=== PATIENT | female | born 2005 | race Caucasian/White ===

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

== ENCOUNTER 2023-11-07 18:21 | Inpatient (IN) ==
--- NOTE | 2023-11-07 18:44 | ED Triage Note ---
Date of Service November 07, 2023 Provider in Triage Author: Jose Ga A History of Present Illness This patient was briefly evaluated while in triage. An abbreviated physical exam was performed. This patient is a 18-year-old Female who presents to the ED for evaluation of suicidal thoughts. Has a plan, but does not elaborate in triage. States "I don't want to be alive anymore". Has had inpatient stays before. Physical Exam Limited Triage Exam: VITALS: Vitals are noted on the nurse's note and reviewed by myself. Vital signs stable. GENERAL: Well-developed, well-nourished, white female, who is in no acute distress and resting comfortably. Patient is cooperative with the examination. HEART: Regular rate and rhythm without murmurs gallops or rubs. LUNGS: Clear to auscultation bilaterally without wheezes, rales or rhonchi. No retractions or accessory muscle use. NEURO: Patient was alert and oriented to person place and time. CN II through XII grossly intact. Initial orders for labs and / or imaging were placed and patient was placed in the waiting area until a bed is available. Please see further documentation for the full ED course. MDM / Impression Impression Impression: Depression with suicidal ideation, Deliberate self-cutting
[2023-11-07 19:29] LABS: Appearance Urine Clear (Clear); Bacteria Urine Automated Negative (Negative); Bilirubin Urine Negative (Negative); Blood Urine Negative (Negative); Cast Urine Automated 0 /lpf (0-5); Color Urine Yellow; Epithelial Cell Urine Auto >30 /lpf (0-5); Glucose Urine UA Negative (Negative); Ketones Urine Negative (Negative); Leukocyte Esterase Urine Negative (Negative); Nitrite Urine Negative (Negative); Protein Urine Trace (Negative); RBC Urine Automated 0-4 /hpf (0-4); Specific Gravity Urine 1.019 (1.000-1.030); Urobilinogen Urine Negative (Negative)
[2023-11-07] MEDS ORDERED: clonazePAM 0.25 MG TAB PO PRN (19:35)
[2023-11-07 19:36] LABS: Basophils # (auto) 0.05 K/uL (0.00-0.20); Basophils % (auto) 0.4 %; Eosinophils # (auto) 0.03 K/uL (0.00-0.50); Eosinophils % (auto) 0.2 %; Hematocrit (blood only) 41.5 % (37.0-47.0); Hemoglobin 13.8 g/dl (12.0-16.0); Immature Granulocytes # (auto) 0.06 K/uL (0.01-0.20); Immature Granulocytes % (auto) 0.5 %; Lymphocytes # (auto) 3.16 K/uL (1.20-3.40); Lymphocytes % (auto) 25.2 %; Mean Corpuscular Hemoglobin 29.2 pg (25.0-34.0); Mean Corpuscular Hgb Conc 33.3 g/dL (32.0-36.0); Mean Corpuscular Volume 87.9 fL (80.0-100.0); Mean Platelet Volume 9.5 fL (9.4-12.4); Monocytes # (auto) 0.62 K/uL (0.11-0.59); Monocytes % (auto) 4.9 %; Neutrophils # (auto) 8.62 K/uL (1.40-6.50); Neutrophils % (auto) 68.8 %; Platelet Count 339 K/uL (130-400); RDW Coefficient of Variation 13.1 % (11.5-14.5); RDW Standard Deviation 41.8 fL (36.4-46.3); Red Blood Count 4.72 M/uL (4.20-5.40); White Blood Count 12.54 K/ul (4.8-10.8)
[2023-11-07] MEDS ORDERED: busPIRone 5 MG TAB PO SCH (19:45)
[2023-11-07 19:47] LABS: Albumin Globulin Ratio 1.4 (0.9-2); Albumin Level 4.8 gm/dl (3.4-5.0); BUN Creatinine Ratio 13.4 (10-20); Bilirubin,Total 0.5 mg/dl (0.2-1.0); Calcium 9.8 mg/dl (8.6-10.3); Creatinine Clr Calc Pharmacy 185.3 ml/min; Est GFR (African American) 146.7 ml/min; Est GFR (Non-African American) 126.5 ml/min; Globulin 3.4 gm/dl (2.5-4.0); Potassium 3.7 mmol/L (3.5-5.1); Total Protein 8.2 gm/dl (6.0-8.3)
--- NOTE | 2023-11-07 19:47 | Emergency Department Note ---
Impression & Plan Depression with suicidal ideation, Deliberate self-cutting ED Provider Note Provider: Chucky Ortiz MD DATE OF SERVICE: 11/07/2023 CHIEF COMPLAINT: Depression, self-harm HISTORY OF PRESENT ILLNESS: Patient is a 18-year-old female history of PTSD, anxiety, self-harm in the past, borderline personality presenting here today after discussing with her friend her worsening mental health. Patient states over the last several days to weeks she has had worsening events at home. Broke up with her fianc. Last day or so did a bit of self cutting on her right leg with a razor and has been looking up ways and then and had a killer cell fast and quickly. States she has not acted on this or got anything but is very depressed and feels like she is wants to be . Denies wanting harm anybody else. States she has been mostly taking her other medications occasionally missing some of her psychiatric medications. Has been living with her female roommate who again recommended she come here for evaluation. Was previously hospitalized here in August and did well with that she says. Denies alcohol use and does use marijuana. PAST MEDICAL HISTORY: As noted above MEDICATIONS: Reviewed home medication SOCIAL HISTORY: Lives with roommate, uses marijuana but does not drink alcohol or use other drugs. PHYSICAL EXAM: GENERAL: alert and oriented in no acute distress on stretcher initial Head: normocephalic and atraumatic EYES: No injection, discharge or icterus. NECK: Trachea midline. ENT: Mucous membranes pink and moist. LUNGS: Airway patent. No retractions or tachypnea HEART: Regular rate and rhythm. SKIN: Acyanotic, warm, dry EXTREMITIES: Without swelling, tenderness or deformity NEUROLOGICAL: No focal deficits. No aphasia. No facial droop or slurred speech. Ambulatory. Psych: Squeezing a stress ball becoming quite tearful during conversation. Denies wanting to harm anybody else. Not responding to external stimuli. Tearful and quite anxious during exam. Patient's laboratory studies and imaging reviewed. Differential includes Mood disorder, infection, hypoglycemia, electrolyte abnormalities, cardiac sources, intracerebral event, toxicologic, trauma, neurologic, as well as other pathologies. IMPRESSION/MEDICAL DECISION MAKING: Patient with a psychiatric history. Quite tearful with some minimal cutting self-harm to the legs but nothing significant depth require closure. Not appear infected. States he has been a little ways to harm self. Seen with returned case inspector. Home medications ordered she states she was mostly compliant with. Believe she would benefit from inpatient treatment given the severity of her reported suicidal thoughts and fact that she is looking up ways to end her life and really admits this to me. Basic labs ordered hearing completed. Nonspecific leukocytosis but no other infectious symptoms. No signs of significant thyroid dysfunction or electrolyte abnormality. No signs of UTI. Negative COVID testing. UDS positive for marijuana as well as opiates. She admits to marijuana use. Case management discussed with her further and referral to be made for voluntary inpatient treatment. Home meds ordered and given and as needed clonazepam is the patient's significant other broke up with the patient via phone here and she became quite tearful and upset. Bed search in progress for inpatient treatment. DIAGNOSIS: Depression with suicidal ideation DISPOSITION: Signed out pending placement to Dr. Maddox Past Med/Surg History Medical History Depression Nausea & vomiting reason for upcoming procedure PCOS (polycystic ovarian syndrome) Pre-diabetes Surgical History No pertinent past surgical history Family History Other No family history of adverse response to anesthesia Social History Smoking Status: Never smoker Tobacco Type: E-cigarettes / Vaping Second Hand Exposure: No; Do You Dip or Chew Tobacco: No; Hx Alcohol Use: No Hx Substance Use: No Preferred Language: Kosovan Communication Ability: Effective Academic Affairs Dean Required: No Beliefs That Will Affect Care: None Current Living Situation: Alone Feels Safe at Home: Yes Gender Identity: Female Assistive Devices: Glasses Allergies Allergies Allergy/AdvReac Type Severity Reaction Status Date / Time escitalopram [From Lexapro] AdvReac Intermediate MOUTH Verified 07/12/22 22:39 JITTERY, NAUSEATED, PASSED OUT Home Meds Home Medications Medication Instructions Recorded Confirmed metformin 500 mg tablet,extended 500 mg PO QAM 07/20/21 11/07/23 release 24 hr dulaglutide 1.5 mg/0.5 mL 4.5 mg subcut WK 08/17/23 11/07/23 subcutaneous pen injector (Trulicity) buspirone 10 mg tablet 15 mg PO BIDWMEAL 11/07/23 11/07/23 clonazepam 0.5 mg tablet 0.5 mg DIRECTED PRN Anxiety 11/07/23 11/07/23 lamotrigine 25 mg tablet (Lamictal) 100 mg PO HS 11/07/23 11/07/23 Previous Rx's Medication Instructions Recorded fluoxetine 20 mg capsule 20 mg PO QAM #30 caps 08/19/23 trazodone 50 mg tablet 50 mg PO HS #30 tabs 08/19/23 Results & Data (ED) Vital Signs Vital Signs - 24 hr 11/07/23 18:43 11/07/23 19:22 11/07/23 21:00 Temperature 36.5 C Temperature Source Temporal Artery Scan Pulse Rate 115 H Respiratory Rate 18 Respiratory Effort / Characteristics Non-Labored Non-Labored Respiratory Depth Normal Normal Normal Blood Pressure 159/93 H Blood Pressure Mean 115 Blood Pressure Position Sitting Pulse Oximetry 93 Oxygen Delivery Method Room Air Room Air Sepsis Recent Fever Within 48 Hours No Sepsis New/Unexplained Change in Mental Status No Sepsis Action Taken by Nursing No Action Required Laboratory Data 11/07/23 19:00 11/07/23 19:00 Lab Results 11/07/23 11/07/23 11/07/23 Range/Units 18:56 19:00 19:20 WBC 12.54 H (4.8-10.8) K/ul RBC 4.72 (4.20-5.40) M/uL Hgb 13.8 (12.0-16.0) g/dl Hct 41.5 (37.0-47.0) % MCV 87.9 (80.0-100.0) fL MCH 29.2 (25.0-34.0) pg MCHC 33.3 (32.0-36.0) g/dL RDW Std Deviation 41.8 (36.4-46.3) fL RDW Coeff of Marcelo 13.1 (11.5-14.5) % Plt Count 339 (130-400) K/uL MPV 9.5 (9.4-12.4) fL Immature Gran % (Auto) 0.5 % Neut % (Auto) 68.8 % Lymph % (Auto) 25.2 % [place] % (Auto) 4.9 % Eos % (Auto) 0.2 % Baso % (Auto) 0.4 % Neut # (Auto) 8.62 H (1.40-6.50) K/uL Lymph # (Auto) 3.16 (1.20-3.40) K/uL [place] # (Auto) 0.62 H (0.11-0.59) K/uL Eos # (Auto) 0.03 (0.00-0.50) K/uL Baso # (Auto) 0.05 (0.00-0.20) K/uL Immature Gran # (Auto) 0.06 (0.01-0.20) K/uL Sodium 140 (136-145) mmol/L Potassium 3.7 (3.5-5.1) mmol/L Chloride 107 (98-107) mmol/L Carbon Dioxide 23 (21-32) mmol/L Anion Gap 10 (3-11) BUN 9 (6-23) mg/dl Creatinine 0.67 (0.6-1.2) mg/dl Est Cr Clr Drug Dosing 185.3 ml/min Est GFR ( Amer) 146.7 ml/min Est GFR (Non-Af Amer) 126.5 ml/min BUN/Creatinine Ratio 13.4 (10-20) Glucose 90 (70-99(Fasting)) mg/dl Calcium 9.8 (8.6-10.3) mg/dl Total Bilirubin 0.5 (0.2-1.0) mg/dl AST 24 (13-39) U/L ALT 34 (7-52) U/L Alkaline Phosphatase 90 (34-104) U/L Total Protein 8.2 (6.0-8.3) gm/dl Albumin 4.8 (3.4-5.0) gm/dl Globulin 3.4 (2.5-4.0) gm/dl Albumin/Globulin Ratio 1.4 (0.9-2) TSH 1.994 (0.300-4.500) uIu/ml HCG, Qual Negative (Negative) Urine Color Yellow Urine Appearance Clear (Clear) Urine pH 7.0 (4.5-7.5) Ur Specific [place] 1.019 (1.000-1.030) Urine Protein Trace H (Negative) Urine Glucose (UA) Negative (Negative) Urine Ketones Negative (Negative) Urine Blood Negative (Negative) Urine Nitrite Negative (Negative) Urine Bilirubin Negative (Negative) Urine Urobilinogen Negative (Negative) Ur Leukocyte Esterase Negative (Negative) Urine WBC (Auto) 1-5 (0-5) /hpf Urine RBC (Auto) 0-4 (0-4) /hpf U Hyaline Cast (Auto) 0 (0-5) /lpf U Epithel Cells (Auto) >30 H (0-5) /lpf Urine Bacteria (Auto) Negative (Negative) Salicylates < 3.0 L (3.0-30) mg/dl Urine Opiates Screen Pos H (Neg) Ur Methadone, Qual Neg (Neg) Acetaminophen < 3 L (10-30) ug/ml Urine Barbiturates Neg (Neg) Ur Phencyclidine (PCP) Neg (Neg) U Amphetamin/Meth Scrn Neg (Neg) MDMA (Ecstasy) Screen Neg (Neg) U Benzodiazepines Scrn Neg (Neg) Ur Cocaine Metabolite Neg (Neg) U Marijuana (THC) Screen Pos H (Neg) Ethyl Alcohol mg/dL < 10.0 (<10.0) mg/dl SARS-CoV-2, RNA, NAAT NEGATIVE (NEGATIVE) Administered Medications Lamotrigine (Lamotrigine 25 Mg Tab) 100 mg PO [facility]; Protocol Stop: 12/07/23 20:59 Last Admin: 11/07/23 21:13 Dose: 100 mg Documented By: SHANAE Trazodone HCl (Trazodone Hcl 50 Mg Tab) 50 mg PO [facility] Stop: 12/07/23 20:59 Last Admin: 11/07/23 21:13 Dose: 50 mg Documented By: SHANAE Discontinued Medications Clonazepam (Clonazepam 0.5 Mg Tab) Confirm Administered Dose 0.5 mg PO .STK-MED ONE Stop: 11/07/23 21:11 Last Admin: 11/07/23 21:17 Dose: Not Given Documented By: SHANAE Clonazepam (Clonazepam 0.5 Mg Tab) 0.5 mg PO NOW STA Stop: 11/07/23 21:17 Last Admin: 11/07/23 21:17 Dose: 0.5 mg Documented By: SHANAE Discharge Plan Visit Data Chief Complaint: Mental Health Evaluation Stated Complaint: SUICIDAL THOUGHTS, SELF HARM ED Provider: Chucky Ortiz Discharge Problem: Depression with suicidal ideation, Deliberate self-cutting Forms Stand Alone Forms: My [facility], Suicide Prevention Resources Prescriptions Prescriptions: No Action metformin 500 mg tablet extended release 24 hr 500 mg PO QAM clonazepam 0.5 mg tablet 0.5 mg DIRECTED PRN (Reason: Anxiety) buspirone 10 mg tablet 15 mg PO BIDWMEAL lamotrigine [Lamictal] 25 mg tablet 100 mg PO HS Trulicity 1.5 mg/0.5 mL pen injector 4.5 mg SUBCUT WK trazodone 50 mg Tablet 50 mg PO HS Qty: 30 0RF fluoxetine 20 mg Capsule 20 mg PO QAM Qty: 30 0RF Referrals Referrals: Tomasa Saldaña MD [Primary Care Provider] -
[2023-11-07 19:48] LABS: Acetaminophen < 3 ug/ml (10-30); Pregnancy Test, Serum Negative (Negative); Salicylate < 3.0 mg/dl (3.0-30)
[2023-11-07 19:54] LABS: Amphetamines+Metham, Urine Neg (Neg); Barbiturates, Urine Neg (Neg); Benzodiazepine, Urine Neg (Neg); Cocaine, Urine Neg (Neg); MDMA (Ecstacy), Urine Neg (Neg); Marijuana, Urine Pos (Neg); Methadone, Urine Neg (Neg); Opiate, Urine Pos (Neg); Phencyclidine, Urine Neg (Neg)
[2023-11-07 20:01] LABS: Thyroid Stimulating Hormone 1.994 uIu/ml (0.300-4.500)
[2023-11-07] MEDS ORDERED: traZODone HCL 50 MG TAB PO SCH (21:00)
[2023-11-07] MEDS ORDERED: lamoTRIgine 25 MG TAB PO SCH (21:00)
[2023-11-07] MEDS ORDERED: clonazePAM 0.5 MG TAB PO ONE (21:10)
[2023-11-07] MEDS ORDERED: clonazePAM 0.5 MG TAB PO STA (21:16)
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
--- OUTSIDE RECORDS SUMMARY | 2023-11-07 23:25 | External Medical Summary ---
Author Name Unknown Address Unknown Organization [id number]:[facility] - [address] [place] [address] Laboratory Report Ordering Provider Test Date Status MILANA STOKES 10/19/2023 10:20:15 Final Observation Date Value Abnormality Reference (Units) Status Bacteria identified in Specimen by Culture 10/19/2023 10:20:15 No significant growth Final Test: Culture, Urine, Quant itative
Specimen Source: Urine, Clean Catch
Specimen Type: Urine
Specimen Date: 10/19/2023 10:20 AM
Result Date: 10/20/2023 2:55 PM
Result Status: Final result
Resulting Lab: [facility]
[address]
[facility] [address]

CULTURE

No significant growth

null Performing Location [facility] - [address] [facility] [address]
--- OUTSIDE RECORDS SUMMARY | 2023-11-07 23:25 | External Medical Summary | Summary of Care ---
Author Name Unknown Organization [facility] Address [address] [place] [address] Phone [phone] Care Team Providers Care Home Demonstration Agent Name Role Phone Tomasa Saldaña MD Primary Care Provider [phone] Reason for Visit * Reason Onset Date Comments Encounter Created in Error 11/01/2023 Encounter Details Date Type Department Care Team ([facility] st Contact Info) Description 11/01/[address] [facility] [address] [place] [address] Tomasa Saldaña MD [address] [place] [address] Encounter Created in Error Allergies Active Allergy Reactions Criticality Noted Date Comments Escitalopram Other (Please comment) Medium 01/26/2021 Pt had lightheadedness. documented as of this encounter (statuses as of 11/01/2023) Medications Medication Sig Dispensed Refills Start Date End Date Status Loratadine 10 MG Oral Tablet (Claritin) Take 1 Tablet by mouth in the morning. 30 Tablet 11 04/18/2023 Active Nicotine 21 MG/24HR Transdermal Patch 24 Hour (Nicoderm CQ) Place 1 Patch over 24 hours topically on the skin in the morning. On upper body/upper arm, change once a day for 6 weeks.. 42 Patch 1 05/13/2023 Active lamoTRIgine 150 MG Oral Tablet (LaMICtal) 100 mg. 0 03/28/2023 Active Proventil HFA 108 (90 Base) MCG/ACT Inhalation Aerosol Solution Inhale 2 Puffs by mouth every 4 hours as needed for Wheezing (SOB). 18 g 5 07/29/2023 Active FLUoxetine HCl 20 MG Oral Capsule (PROzac) Take 1 Capsule by mouth in the morning. 0 Active busPIRone HCl 10 MG Oral Tablet (Buspar) Take 1.5 Tablets by mouth 2 times a day. 0 Active Prazosin HCl 1 MG Oral Capsule (Minipress) Take 1 Capsule by mouth at bedtime. 0 Active metFORMIN HCl ER 500 MG Oral Tablet Extended Release 24 Hour (Glucophage XR)Indications:Class 3 severe obesity without serious comorbidity with body mass index (BMI) of 60.0 to 69.9 in adult, unspecified obesity type (HCC) Take 1 Tablet by mouth in the morning. 30 Tablet 2 10/02/2023 Active Trulicity 4.5 MG/0.5ML Subcutaneous Solution Pen-injector (Dulaglutide)Indicati ons:PCOS (polycystic ovarian syndrome),Hyperinsuli nemia Inject 4.5 mg under the skin once a week. 2 mL 0 10/02/2023 Active Triamcinolone Acetonide 0.1 % Mouth/Throat Paste (Kenalog In Orabase)Indications:O ral aphthae Apply to inside of cheek 3 times a day. To affected area. 5 g 1 10/19/2023 Active traZODone HCl 50 MG Oral Tablet (Desyrel) Take 1 Tablet by mouth at bedtime as needed for Sleep. 0 Active documented as of this encounter (statuses as of 11/01/2023) Active Problems Problem Noted Date Diagnosed Date Food insecurity 04/22/2023 Overview: Per [facility] Protocol PCOS (polycystic ovarian syndrome) 03/26/2023 Hyperinsulinemia 11/02/2022 Bipolar 2 disorder, major depressive episode Body mass index (BMI) of 50.0 to 59.9 in adult 0 03/21/2021 Overview: Per Obesity protocol Depression 06/09/2014 ADVANCE DIRECTIVE INFORMATION 10/16/2005 Overview: Not applicable (under age of 18) documented as of this encounter (statuses as of 11/01/2023) Resolved Problems Problem Noted Date Diagnosed Date Resolved Date Constipation 11/02/2022 12/07/2022 Prediabetes 03/21/2021 11/22/2022 Overview: Per Prediabetes protocol Obesity 06/09/2014 10/26/2022 documented as of this encounter (statuses as of 11/01/2023) Immunizations Name Administration Dates Next Due COVID-19 mRNA, LNP-s, No Pre serve, 2-Dose Series (Moderna) 08/28/2021,07/15/2021 DTaP HIB - Dipth/Tet/Acell Pert/HIB 04/20/2008 DTaP Dipth/Tet/Acell Pertussis (Infanrix), Peds 08/28/2004,2003,2003,05/11 HIB PRP-OMP, 3 dose (Pedvax) 03/29/2004,07/13/20 03,2003 HPV Vaccine, 4-Valent 06/09/2014 HPV Vaccine, 9-Valent 01/18/2021 Haemophilius B (HIB), unspecified 03/29/2004,12/2002,2003 IPV - Polio Virus Vaccine (Inact) 04/20/2008,12/2002,2003 MMR - Measles/Mumps/Rubella Vaccine 04/20/2008,0 03/29/2004 Meningococcal Conjugate Vacc ine (Menactra/Menveo) 06/09/2014 Meningococcal MCV4O Conjugat e Vaccine (Menveo) 01/18/2021 Meningococcal MCV4P Conjugat e Vaccine (Menactra) 01/18/2021,06/09/2014 PPD 03/29/2023 Pneumococcal Conjugate Vacci ne, 20-valent ([id number]) 05/13/2023 Pneumococcal Conjugate Vacci ne, 7 Valent 2003,2003,2003 Seasonal Influenza Intranasal 09/28/2013 Seasonal Influenza Virus Vac cine, Unspecified Formulation 08/28/2021,09/28/2013,2003 Seasonal Influenza, PF, 6 M & above, IM , (FluLaval or Fluzone) 10/26/2022 Seasonal Influenza, Split, I IV3, No [...] = 0.6 oz pur e alcohol) occassional PHQ-2 Answer Date Recorded PHQ Adult Total Score 21 05/31/2023 Hunger Vital Sign Answer Date Recorded Within the past 12 months, y ou worried that your food would run out before you got the money to buy more. Often true 03/26/20 23 Within the past 12 months, t he food you bought just didn't last and you didn't have money to get more. Often true 03/26/2023 Sex and Gender Information Value Date Recorded Sex Assigned at Female 03/26/2023 2:50 AM EDT Gender Identity Female 03/26/2023 2:50 AM EDT Sexual Orientation Straight 05/11/2023 2: 26 PM EDT Sexual Orientation Bisexual 05/11/2023 2: 26 PM EDT Job Start Date Occupation Industry Not on file Not on file Not on file documented as of this encounter Miscellaneous Notes * Telephone Encounter - Mary Coleman OSA - 11/01/2023 1:12 PM EST error documented in this encounter Plan of Treatment Upcoming Encounters Date Type Department Care Team (Late st Contact Info) Description 11/15/2023 8:20 AM EST Telemedicine Nutrition & Weight Management, [facility] [address] [place] [address] Carly Campbell PA-C [address] [place] [address] Health Maintenance Due Date Last Done Comments Hepatitis B (1 of 3 - 3-dose series) 2003 Depression, Most Recent Scor e >= 10 (will fire each visit until score < 10) 06/01/2023 05/31/2023 COVID-19 Vaccine (3 - 2022-2 4 season) 2023 08/28/2021, 07/15/2021 Yearly Wellness Visit 12/07/2023 12/07/2022 , 10/26/2022, 01/18/2021, Additional history exists Gonorrhea / Chlamydia Screen 02/19/202408/2023, 07/19/2021, 03/10/2020 DTaP,Tdap,and Td Vaccines (7 - Td or Tdap) 06/09/2024 06/09/2014, 04/20/2008, 08/28/2004, Additional history exists GARDASIL-HPV IMMUNIZATION SERIES Completed 01/19/20, 06/09/2014 MENINGOCOCCAL (MENACTRA/MENVEO) Completed 01/18/2021, 01/18/2021, 06/09/2014, Additional history exists Pneumococcal Vaccine: Pediat rics (0 to 5 Years) and At-Risk Patients (6 to 64 Years) Completed 05/13/2023 Influenza Vaccine (FLU shot) Completed 03/2023, 10/26/2022, 08/28/2021, Additional history exists documented as of this encounter Medical Devices Not on filedocumented as of this encounter Care Teams Home Demonstration Agent Relationship Specialty Start Date End Date Tomasa Saldaña MD [address] [place] [address] PCP - General Internal Medicine 11/07/22 documented as of this encounter
--- OUTSIDE RECORDS SUMMARY | 2023-11-07 23:25 | External Medical Summary | Summary of Care ---
Author Name Unknown Organization [facility] Address [address] [place] [address] Phone [phone] Care Team Providers Care Manager Corporate Responsibility Name Role Phone Tomasa Saldaña MD Primary Care Provider [phone] Encounter Details Date Type Department Care Team Description 08/20/[address] [facility] [address] [place] [address] Tomasa Saldaña MD [address] [place] [address] Allergies Active Allergy Reactions Severity Noted Date Comments Escitalopram Other (Please comment) Medium 01/26/2021 Pt had lightheadedness. documented as of this encounter (statuses as of 08/20/2023) Medications Medication Sig Dispensed Refills Start Date [...] DAILY IN THE MORNING 0 03/28/2023 Active Wfxcilxk-Pvwetxkji-V C 3.5-47237-2 Otic SolutionIndications: Other infective acute otitis externa of left ear [...] Wheezing (SOB). 18 g 5 07/29/2023 Active Trulicity 1.5 MG/0.5ML Subcutaneous Solution Pen-injector (Dulaglutide)Indicat ions:PCOS (polycystic ovarian syndrome),Hyperinsul inemia Inject 1.5 mg under the skin once a week. 2 mL 3 07/31/2023 Active documented as of this encounter (statuses as of 08/20/2023) Active Problems Problem Noted Date Food insecurity [...] as of this encounter (statuses as of 08/20/2023) Resolved Problems Problem Noted Date Resolved Date Constipation 11/02/2022 12/07/2022 Prediabetes 03/21/2021 11/22/2022 Overview: Per Prediabetes protocol Obesity 06/09/2014 10/26/2022 documented as of this encounter (statuses as of 08/20/2023) Immunizations Name Administration Dates Next Due COVID-19 [...] PPD 03/29/2023 Pneumococcal Conjugate Vacci ne, 20-valent ([id number]) 05/13/2023 Pneumococcal Conjugate Vacci ne, 7 Valent 2003,2003,2003 SEASONAL INFLUENZA, PF, 6 M & Above, IM , (FLULAVAL or FLUZONE) 10/26/2022 Seasonal Influenza Intranasal 09/28/2013 Seasonal Influenza Virus Vac cine, Unspecified Formulation 08/28/2021,09/28/2013,2003 Seasonal Influenza, Split, I IV3, No Preserve, [...] on file documented as of this encounter Plan of Treatment Upcoming Encounters Date Type Specialty Care Team Description 08/22/2023 Office Visit Family Medicine Johnie Sparrow CRNP [address] [place] [address] 09/30/2023 Telemedicine Sleep Disorders Haleigh Rich DO [address] [place] [address] 11/15/2023 Telemedicine Gastroenterology Carly Campbell PA-C [address] [place] [address] Health Maintenance Due Date Last Done Comments Hepatitis B (1 of 3 - 3-dose series) 2003 Depression, Most Recent Scor e >= 10 (will fire each visit until score < 10) 06/01/2023 05/31/2023 COVID-19 Vaccine (3 - 2022-2 4 season) 2023 08/28/2021, 07/15/2021 Influenza Vaccine (FLU shot) (#1) 2023 10/26/2022, [...] Not on filedocumented as of this encounter Procedures Procedure Name Priority Date/Time Associated Diagnosis Comments OUTSIDE LAB-CORONAVIRUS (COVID-19) Routine 08/14/2023 CHEMISTRY-OUTSIDE Routine 08/14/2023 TSH Routine 08/14/2023 documented in this encounter Results * OUTSIDE LAB-CORONAVIRUS (COVID-19) (08/14/2023) [id number] LAB NEGATIVE NEGATIVE OUTSIDE LAB (SEE SCANNED REPORT) 08/14/2023 History Per Patient LABORATORY OUTSIDE LAB (SEE SCANNED REPORT) * TSH (08/14/2023) TSH - OUTSIDE LAB 2.276 0.300 - 4.500 UIU/ML OUTSIDE LAB (SEE SCANNED REPORT) Blood Venous blood specimen / Unknown 08/14/2023 History Per Patient LAB BLOOD ORDERABLES OUTSIDE LAB (SEE SCANNED REPORT) * CHEMISTRY-OUTSIDE (08/14/2023) Not all results display below - see scan for full detail OUTSIDE LAB (SEE SCANNED REPORT) Comment:SEE SCAN - CBC,URINA LYSIS,CHEM,TSH,DRUG URINE,URINE PREG,URINE CULTURE,SALICYLATE CREATININE-OUTSID E LAB 0.79 0.6 - 1.2 MG/DL OUTSIDE LAB (SEE SCANNED REPORT) EGFR-OUTSIDE LAB 107.8 ML/MIN OUT SIDE LAB (SEE SCANNED REPORT) POTASSIUM-OUTSIDE LAB 3.7 3.5 - 5.1 MMOL/L OUTSIDE LAB (SEE SCANNED REPORT) GLUCOSE-OUTSIDE LAB 90 70 - 99 MG/DL OUTSIDE LAB (SEE SCANNED REPORT) HOURS FASTING OUTSID E LAB (SEE SCANNED REPORT) TRIGLYCERIDES-OUT SIDE LAB OUTSIDE LAB (SEE SCANNED REPORT) CHOLESTEROL-OUTSI DE LAB OUTSIDE LAB (SEE SCANNED REPORT) HDL-OUTSIDE LAB OUTS [facility] (SEE SCANNED REPORT) CHOL/HDL RATIO-OUTSIDE LAB OUTSIDE LA B (SEE SCANNED REPORT) LDL (CALCULATED)-OUTS [facility] OUTSIDE LAB (SEE SCANNED REPORT) LDL (DIRECT MEASURE)-OUTSIDE LAB OUTSIDE LAB (SEE SCANNED REPORT) HEMOGLOBIN, [id number] LAB OUTSIDE LAB (SEE SCANNED REPORT) PHOSPHORUS-OUTSID E LAB OUTSIDE LAB (SEE SCANNED REPORT) PTH-OUTSIDE LAB OUTS [facility] (SEE SCANNED REPORT) MICROALBUMIN RATIO-OUTSIDE LAB OUTSIDE LA B (SEE SCANNED REPORT) PROTEIN, UA-OUTSIDE LAB TRACE NEGATIVE OUTSIDE LAB (SEE SCANNED REPORT) HEMOGLOBIN-OUTSID E LAB 15.1 12.0 - 16.0 G/DL OUTSIDE LAB (SEE SCANNED REPORT) 08/14/2023 History Per Patient LABORATORY OUTSIDE LAB (SEE SCANNED REPORT) documented in this encounter Care Teams Manager Corporate Responsibility Relationship Specialty Start Date End Date Tomasa Saldaña MD [address] [place] [address] PCP - General Internal Medicine 11/07/22 documented as of this encounter
--- OUTSIDE RECORDS SUMMARY | 2023-11-07 23:25 | External Medical Summary ---
Author Name Unknown Address Unknown Organization K0G:[facility] [address] - [address] [place] [address] Laboratory Report Ordering Provider Test Date Status 10/31/2023 11:29:27 Final Observation Date Value Abnormality Reference (Units ) Status Screen, Urine 10/31/2023 11:29:27 Negative Negative Final Performing Location [facility] [address] [place] [address]
--- OUTSIDE RECORDS SUMMARY | 2023-11-07 23:25 | External Medical Summary | Summary of Care ---
Author Name Unknown Organization [facility] Address [address] [place] [address] Phone [phone] Care Team Providers Care Embalmer/Funeral Director Name Role Phone Tomasa Saldaña MD Primary Care Provider [phone] Reason for Referral * Precert (Within 10 days (routine)) - Pending Review Specialty Diagnoses / Procedures Referred By Radha arellano Referred To Contact Sleep Disorders Diagnoses Snoring Observed sleep apnea Insomnia, unspecified type Excessive daytime sleepiness Sleep apnea, unspecified type Morbid obesity (HCC) Procedures SLEEP STUDY, W/ CPAP (TREATMENT SETTINGS) Haleigh Rich DO [address] [place] [address] Referral ID Status Reason Start Date Expiration Date V isits Requested Visits Authorized [id number] Pending Review 09/30/2023 999 999 * Precert (Within 10 days (routine)) - Pending Review Specialty Diagnoses / Procedures Referred By Conttj arellano Referred To Contact Sleep Disorders Diagnoses Snoring Observed sleep apnea Insomnia, unspecified type Excessive daytime sleepiness Sleep apnea, unspecified type Morbid obesity (HCC) Procedures SLEEP STUDY, W/O CPAP Haleigh Rich DO [address] [place] [address] Referral ID Status Reason Start Date Expiration Date V isits Requested Visits Authorized [id number] Pending Review 09/30/2023 999 999 Reason for Visit * Reason Comments Sleep Problems * Evaluate & Treat - Unlimited Visits (Within 10 days (routine)) - Pending Review Specialty Diagnoses / Procedures Referred By Radha arellano Referred To Contact Sleep Medicine / Sleep Disorders Diagnoses Snoring Carly Campbell PA-C [address] [place] [address] Referral ID Status Reason Start Date Expiration Date Visits Requested Visits Authorized [id number] Pending Review Specialty Services Required 06/07/2023 2 2 Encounter Details Date Type Department Care Team (Late st Contact Info) Description 09/30/2023 3:20 PM EST Telemedicine Sleep Disorders Ctr [facility] [address] [place] [phone] Haleigh Rich DO [address] [place] [address] Snoring*; Observed sleep apnea; Insomnia, unspecified type; Excessive daytime sleepiness; Sleep apnea, unspecified type; Morbid obesity (HCC) Allergies Active Allergy Reactions Criticality Noted Date Comments Escitalopram Other (Please comment) Medium 01/26/2021 Pt had lightheadedness. documented as of this encounter (statuses as of 09/30/2023) Medications Medication Sig Dispensed Refills Start Date End Date Status Gabapentin 100 MG Oral Capsule (Neurontin) Take 1 Capsule by mouth in the morning and 1 Capsule at noon and 1 Capsule before bedtime. 0 01/09/2023 Active traZODone HCl 300 MG Oral Tablet (Desyrel) Take 50 mg by mouth at bedtime. 0 12/12/2022 Active [...] Tablet (LaMICtal) 100 mg. 0 03/28/2023 Active Bgkdltou-Jsikyausc-V C 3.5-95013-8 Otic SolutionIndications: Other infective acute otitis externa [...] (SOB). 18 g 5 07/29/2023 Active Trulicity 3 MG/0.5ML Subcutaneous Solution Pen-injector (Dulaglutide) Inject 3 mg under the skin once a week. 2 mL 0 08/26/2023 Active FLUoxetine HCl 20 MG Oral Capsule (PROzac) Take 1 Capsule by mouth in the morning. 0 Active busPIRone HCl 10 MG Oral Tablet (Buspar) Take 1 Tablet by mouth in the morning and 1 Tablet at noon and 1 Tablet before bedtime. 0 Active Prazosin HCl 1 MG Oral Capsule (Minipress) Take 1 Capsule by mouth at bedtime. 0 Active documented as of this encounter (statuses as of 09/30/2023) Active Problems Problem Noted Date Diagnosed Date Food insecurity 04/22/2023 Overview: Per [facility] Protocol PCOS (polycystic ovarian syndrome) 03/26/2023 Hyperinsulinemia 11/02/2022 Bipolar 2 disorder, major depressive episode Body mass index (BMI) of 50.0 to 59.9 in adult 0 03/21/2021 Overview: Per Obesity protocol Depression 06/09/2014 ADVANCE DIRECTIVE INFORMATION 10/16/2005 Overview: Not applicable (under age of 18) documented as of this encounter (statuses as of 09/30/2023) Resolved Problems Problem Noted Date Diagnosed Date Resolved Date Constipation 11/02/2022 12/07/2022 Prediabetes 03/21/2021 11/22/2022 Overview: Per Prediabetes protocol Obesity 06/09/2014 10/26/2022 documented as of this encounter (statuses as of 09/30/2023) Immunizations Name Administration Dates Next Due COVID-19 [...] PPD 03/29/2023 Pneumococcal Conjugate Vacci ne, 20-valent ([id number]) 05/13/2023 Pneumococcal Conjugate Vacci ne, 7 Valent [...] on file documented as of this encounter Last Filed Vital Signs Vital Sign Reading Time Taken Comments Blood Pressure - - Pulse - - Temperature - - Respiratory Rate - - Oxygen Saturation - - Inhaled Oxygen Concentration - - Weight 139.3 kg (307 lb) 09/30/2023 4:0 8 PM EST patient reported Height 162.6 cm (5' 4") 09/30/2023 4:08 PM EST Body Mass Index 52.7 09/30/2023 4:08 PM EST documented in this encounter Patient Instructions * Patient Instructions* Haleigh Rich DO - 09/30/2023 4:06 PM EST OBSTRUCTIVE SLEEP APNEA We are concerned that you may have obstructive sleep apnea. Obstructive sleep apnea is when someonehas difficulties with breathing only during sleep. This typically happens without the patient beingaware they are having breathing issues. Obstructive sleep apnea is very common. It can be seen in kids and adults. It can cause symptoms of excessive daytime sleepiness, fatigue, morning headaches, and poor memory and cognition. It can also lead to difficulties at work or school and motor vehicle accidents. If left untreated, it puts people at risk for heart attacks, strokes, and diabetes. We diagnose obstructive sleep apnea with either an in-lab sleep study or a home sleep apnea test. If you come in for an in lab sleep study, a trained experimental technician will be present at the sleep center to administer and monitor the test. They will be putting sensors on you that monitor your brain waves, breathing, movements, and respiratory effort. They will not be putting in any IV's or using any needles, and none of the sensors should be painful, though they may be annoying or uncomfortable to some patients when they are trying to sleep. You will have a private room with your own bathroom.Please feel free to bring your own pillow or blanket if you feel this would help you sleep more comf ortably. They provide these things for you, but we want you to feel as comfortable and relaxed as possible when you are spending the night in the sleep center. [facility] is accredited by the [place] [employer] (AASM). To receive accreditation, a sleep centermust meet or exceed all standards for professional quality sleep medicine care as designated by the[facility]. More information can be obtained at: SleepEducation.org documented in this encounter Progress Notes * Haleigh Rich DO - 09/30/2023 3:52 PM EST Sleep Medicine Follow-Up Patient location: HOME. I was in a hospital or clinic location. After connecting through televideo,patient was verified with two unique identifiers. Patient (or authorized legal manufacturer's service representative) was then informed that this was a Telemedicine visit and being conducted confidentially over secure lines. Methods to assure confidentiality were taken. Patient acknowledged consent and understanding of pr ivmitchell and security of the Telemedicine visit. The patient agreed to participate. Time dedicated to today's appointment: 20 minutes HISTORY: Tino York is a 18 year old female seen today for follow up of suspected sleep apnea. Patient was seen on 10/31/22 with loud snoring, witnessed apneas, choking/gasping awakenings, SO & SM insomnia, fatigue, daytime sleepiness. Hollywood was 6, FOSQ 14. PSG had been scheduled but was not able to make it to the appt. Started evaluation for gastric bypass surgery, and was recommended to revisit sleep apnea evaluation. Patient reports no significant change in sleep or overall health in the interim. Still snores and has trouble breathing at night. Fiance reports witnessed apneas. SO & SM insomnia EDS, difficult to stay awake during the day, constantly tired. All she wants to do is sleep. No drowsy driving. Hollywood Sleepiness Scale Question 09/27/2023 1:23 PM EST - Filed by Morena Booth CMA What is the chance you will doze off in the following situation? Sitting and reading High chance of dozing Watching TV High chance of dozing Sitting inactive in a public place, such as a theater or meeting Moderate chance of dozing As a passenger in a car for an hour without a break Moderate chance of dozing Lying down to rest in the afternoon when circumstances permit High chance of dozing When sitting and talking to someone Slight chance of dozing When sitting quietly after lunch without alcohol High chance of dozing In a car, while stopped for a few minutes in traffic Slight chance of dozing Score (range: 0 - 24) 18 Functional Outcomes Of Sleep Question 09/27/2023 1:25 PM EST - Filed by Morena Booth CMA Please complete the following questions. Do you have difficulty concentrating because you are sleepy or tired? Yes, extreme Do you have difficulty remembering things because you are sleepy or tired? Yes, moderate Do you have difficulty operating a motor vehicle for short distances (less than 100 miles) because you become sleepy? No Do you have difficulty operating a motor vehicle for long distances (more than 100 miles) because you become sleepy? Yes, a little Do you have difficulty visiting family or friends in their home because you become sleepy or tired?Yes, a little Has your relationship with family, friends, or work colleagues been affected because you are sleepyor tired? No Do you have difficulty watching a movie or video because you become sleepy or tired? Yes, extreme Do you have difficulty being as active as you want to be in the evening because you are tired or sleepy? Yes, extreme Do you have difficulty being as active as you want to be in the morning because you are tired or sleepy? Yes, extreme Has your mood been affected because you are sleepy or tired? Yes, extreme Score (range: 10 - 40) 21 Additional changes in health in the interim of care: hospitalized last month for mental health. On Trulicity now and planning for gastric bypass. Slowly losing weight. 307 lbs now, per patient report. Patient Active Problem List Diagnosis Code ADVANCE DIRECTIVE INFORMATION Depression F32.A Body mass index (BMI) of 50.0 to 59.9 in adult ([facility]) Z68.43 Bipolar 2 disorder, major depressive episode ([facility]) F31.81 Hyperinsulinemia E16.1 PCOS (polycystic ovarian syndrome) E28.2 Food insecurity Z59.41 Outpatient Medications Marked as Taking for the 09/30/23 encounter (Telemedicine) with Haleigh Rich, DO Medication Sig busPIRone HCl 10 MG Oral Tablet (Buspar) Take 1 Tablet by mouth in the morning and 1 Tablet at noonand 1 Tablet before bedtime. FLUoxetine HCl 20 MG Oral Capsule (PROzac) Take 1 Capsule by mouth in the morning. Prazosin HCl 1 MG Oral Capsule (Minipress) Take 1 Capsule by mouth at bedtime. Trulicity 3 MG/0.5ML Subcutaneous Solution Pen-injector (Dulaglutide) Inject 3 mg under the skin once a week. Proventil HFA 108 (90 Base) MCG/ACT Inhalation Aerosol Solution Inhale 2 Puffs by mouth every 4 hours as needed for Wheezing (SOB). metFORMIN HCl ER 500 MG Oral Tablet Extended Release 24 Hour (Glucophage XR) Take 1 Tablet by mouthin the morning. lamoTRIgine 150 MG Oral Tablet (LaMICtal) 100 mg. Jxgrvlfv-Pdormvwep-IY 3.5-84278-8 Otic Solution Administer 4 Drops into ears in the morning and 4 Drops at noon and 4 Drops before bedtime. To affected ear, for 10 days.. Nicotine 21 MG/24HR Transdermal Patch 24 Hour (Nicoderm CQ) Place 1 Patch over 24 hours topically on the skin in the morning. On upper body/upper arm, change once a day for 6 weeks.. Loratadine 10 MG Oral Tablet (Claritin) Take 1 Tablet by mouth in the morning. Gabapentin 100 MG Oral Capsule (Neurontin) Take 1 Capsule by mouth in the morning and 1 Capsule at noon and 1 Capsule before bedtime. PHYSICAL EXAM: Patient-reported weight 307 lbs Height 5'4" Body mass index is 52.7 kg/m. PE limited due to telemedicine. Patient does not appear to be in distress. No rash on visible skin on face. Breathing does not appear to be labored. No audible stridor. Speech is clear and appropriate. Appropriate affect. IMPRESSION/RECOMMENDATIONS: Snoring, witnessed apneas, insomnia, excessive daytime sleepiness - suspect TINO - STOP-BANG 4 (snoring, tired, observed apneas, and BMI > 35) - Discussed the pathophysiology, implications on short- and long-term health, diagnostic evaluation, and likely treatment options of TINO - Schedule an overnight PSG - split night protocol if meets criteria. Include ETCO2 due to BMI 52.7. (Note that prazosin precludes testing with [facility].) - Avoid driving when sleepy/drowsy. - Discussed the relationship between weight and sleep apnea. Sleep apnea may improve with weight loss. Follow-up: Return will send MyG with PSG results. | Check-out note: PSG [facility] Haleigh Rich DO documented in this encounter Nursing Notes * Morena Booth CMA - 09/27/2023 1:21 PM EST Patient is looking to have weight loss surgery. Had started the process a year ago but now has to start over. Snores, witnessed apnea. documented in this encounter Plan of Treatment Upcoming Encounters Date Type Department Care Team (Late st Contact Info) Description 10/16/2023 9:30 AM EST Nurse Only Nutrition & Weight Management, [facility] [address] [facility] [place] [address] [place], Nutrition Ed Class 1 Leobardo [address] [place] [address] 10/16/2023 11:20 AM EST Office Visit Nutrition & Weight Management, [facility] [address] [place] [address] Carly Campbell PA-C [address] [place] [address] 11/15/2023 8:20 AM EST Telemedicine Nutrition & Weight Management, [facility] [address] [place] [address] Carly Campbell PA-C [address] [place] [address] Scheduled Orders Name Type Priority Associated Diagnoses Orde r Schedule SLEEP STUDY, W/O CPAP Procedures Routine Snoring Observed sleep apnea Insomnia, unspecified type Excessive daytime sleepiness Sleep apnea, unspecified type Morbid obesity (HCC) Ordered: 09/30/2023 SLEEP STUDY, W/ CPAP (TREATMENT SETTINGS) Procedures Routine Snoring Observed sleep apnea Insomnia, unspecified type Excessive daytime sleepiness Sleep apnea, unspecified type Morbid obesity (HCC) Ordered: 09/30/2023 Health Maintenance Due Date Last Done Comments [...] Not on filedocumented as of this encounter Visit Diagnoses Diagnosis Snoring- Primary Other dyspnea and respiratory abnormality Sleep apnea, unspecified type Insomnia, unspecified type Excessive daytime sleepiness Morbid obesity (HCC) Morbid obesity documented in this encounter Care Teams Embalmer/Funeral Director Relationship Specialty Start Date End Date Tomasa Saldaña MD [address] [place] [address] PCP - General Internal Medicine 11/07/22 documented as of this encounter
--- OUTSIDE RECORDS SUMMARY | 2023-11-07 23:25 | External Medical Summary | Summary of Care ---
Author Name Unknown Organization [facility] Address [address] [place] [address] Phone [phone] Care Team Providers Care Commercial Subcontractor Name Role Phone Tomasa Saldaña MD Primary Care Provider [phone] Reason for Visit * Reason Comments Acute UTI Encounter Details Date Type Department Care Team (Late st Contact Info) Description 10/19/2023 10:00 AM EST Office Visit Family Practice [facility] [address] [facility] [place] [address] Lluvia Moraes PAMassimoC [address], [place] [id number] Urinary problem*; UTI symptoms; Oral aphthae Allergies Active Allergy Reactions Criticality Noted Date Comments Escitalopram Other (Please comment) Medium 01/26/2021 Pt had lightheadedness. documented as of this encounter (statuses as of 10/19/2023) Medications Medication Sig Dispensed Refills Start Date [...] Tablet (LaMICtal) 100 mg. 0 03/28/2023 Active Neomycin-Polymyxin- HC 3.5-37732-3 Otic SolutionIndications :Other infective acute otitis externa of left ear Administer 4 Drops into ears in the morning and 4 Drops at noon and 4 Drops before bedtime. To affected ear, for 10 days.. 10 mL 0 05/13/2023 Active Additional Information Patient not taking.Reported on 10/19/2023 Proventil HFA 108 (90 Base) MCG/ACT Inhalation [...] Oral Tablet Extended Release 24 Hour (Glucophage XR)Indications:Clas s 3 severe obesity without serious comorbidity with body mass index (BMI) of 60.0 to 69.9 in adult, unspecified obesity type (HCC) Take 1 Tablet by mouth in the morning. 30 Tablet 2 10/02/2023 Active Trulicity 4.5 MG/0.5ML Subcutaneous Solution Pen-injector (Dulaglutide)Indica tions:PCOS (polycystic ovarian syndrome),Hyperinsu linemia Inject 4.5 mg under the skin once a week. 2 mL 0 10/02/2023 Active Sulfamethoxazole-Tr imethoprim 800-160 MG Oral Tablet (Bactrim DS)Indications:Urin sherwin problem,UTI symptoms Take 1 Tablet by mouth in the morning and 1 Tablet before bedtime. Do all this for 7 days. Until gone. 14 Tablet 0 10/19/2023 10/26/2023 Active Triamcinolone Acetonide 0.1 % Mouth/Throat Paste (Kenalog In Orabase)Indications :Oral aphthae Apply to inside of cheek 3 times a day. To affected area. 5 g 1 10/19/2023 Active documented as of this encounter (statuses as of 10/19/2023) Active Problems Problem Noted Date Diagnosed Date [...] as of this encounter (statuses as of 10/19/2023) Resolved Problems Problem Noted Date Diagnosed Date Resolved Date Constipation 11/02/2022 12/07/2022 Prediabetes 03/21/2021 11/22/2022 Overview: Per Prediabetes protocol Obesity 06/09/2014 10/26/2022 documented as of this encounter (statuses as of 10/19/2023) Immunizations Name Administration Dates Next Due COVID-19 [...] PPD 03/29/2023,10/16/2005 Pneumococcal Conjugate Vacci ne, 20-valent ([id number]) 05/13/2023 Pneumococcal Conjugate Vacci ne, 7 Valent 08/28/2004,2003,2003,05/11 SEASONAL INFLUENZA, PF, 6 M & Above, [...] Passive Smoke Exposure: Current Smokeless Tobacco: Never Tobacco Cessation:Ready to Q uit: Not Asked; Counseling Given: Not Answered Comments:Started Vaping in 2019 Alcohol Use Standard Drinks/Week Comments No 0 [...] Sign Reading Time Taken Comments Blood Pressure 128/70 10/19/2023 9:54 AM EST Pulse 102 10/19/2023 9:54 AM EST Temperature 36.3 C (97.4 F) 10/19/2023 9:54 AM ES T Respiratory Rate 20 10/19/2023 9:54 AM EST Oxygen Saturation 98% 10/19/2023 9:54 AM EST Inhaled Oxygen Concentration - - Weight 136.1 kg (300 lb) 10/19/2023 9:54 AM EST Height 162.6 cm (5' 4") 10/19/2023 9:54 AM EST Body Mass Index 51.49 10/19/2023 9:54 AM EST documented in this encounter Progress Notes * Lluvia Moraes PA-C - 10/19/2023 10:07 AM EST Images from the original note were not included. History of Present Illness Tino York is a 18 year old female that presents for Acute (UTI) About a week and a half ago she had urinary issues Going less She noted yellow urine and floaters Not sure if discharge or what Sometimes can physically feel particles coming out Foul smell. Bladder feels full at times Drinks water There is fh of renal calculi Fever and chills Nausea - appetite is poor Lower back pain - this is here and tehre for her. Also some oral lesions. These hurt. Hard to eat. Physical Exam Vitals: 10/19/23 0954 Temp: 36.3 C (97.4 F) Pulse: 102 Resp: 20 SpO2: 98% BP: 128/70 BMI: 51.47 BP Readings from Last 3 Encounters: 10/19/23 128/70 05/13/23 122/78 03/26/23 132/78 Wt Readings from Last 3 Encounters: 10/19/23 136.1 kg (300 lb) 09/30/23 (!) 139.3 kg (307 lb) 05/13/23 (!) 156.9 kg (346 lb) BMI Readings from Last 3 Encounters: 10/19/23 51.49 kg/m 09/30/23 52.70 kg/m 05/13/23 59.39 kg/m Ht Readings from Last 3 Encounters: 10/19/23 1.626 m (5' 4") 09/30/23 1.626 m (5' 4") 05/13/23 1.626 m (5' 4") General: alert, healthy, and no distress Head: Normocephalic, No masses, lesions, tenderness or abnormalities Eye Exam: PERRLA, extraocular movements intact, conjunctiva are pink and non- injected, sclera clear Oropharynx: no exudate, no erythema, lips, and tongue normal, and mucous membranes are moist, oral aphthae Neck: supple, no adenopathy, no bruits, thyroid normal size, non-tender, without nodularity Heart: regular rate & rhythm, no murmur, no gallops, S-1 normal, and S-2 normal Lungs: chest symmetric with normal AP diameter, no chest deformities noted, no chest wall tenderness, lungs clear to auscultation Abdomen: abdomen soft, normal bowel sounds, no masses or organomegaly, and suprapubic pressure Back: back symmetric, no curvature, no costovertebral angle tenderness, range of motion is normal Extremities: less than 2 second capillary refill, no joint deformities, effusion, or inflammation Skin: skin color, texture, turgor are normal, no rashes or significant lesions Assessment and Plan Urinary problem (Primary) - MICROSCOPIC EXAM, URINE - CULTURE, URINE, QUANTITATIVE - US RENAL; Future; Expected date: 10/19/2023 - Sulfamethoxazole-Trimethoprim 800-160 MG Oral Tablet (Bactrim DS); Take 1 Tablet by mouth in the morning and 1 Tablet before bedtime. Do all this for 7 days. Until gone. - RETURN TO WORK OR SCHOOL UTI symptoms - Sulfamethoxazole-Trimethoprim 800-160 MG Oral Tablet (Bactrim DS); Take 1 Tablet by mouth in the morning and 1 Tablet before bedtime. Do all this for 7 days. Until gone. - RETURN TO WORK OR SCHOOL Oral aphthae - Triamcinolone Acetonide 0.1 % Mouth/Throat Paste (Kenalog In Orabase); Apply to inside of cheek 3times a day. To affected area. - RETURN TO WORK OR SCHOOL No evidence of pyelo but we do not have access to urine dip in weekend lcinic so need micro and culture Treat oral lesion Start abx - may need changed Wrap-Up Time: I spent a total of 10-19 minutes (exact time 19 mins) on the date of service in preparation, delivery, and documentation of the care provided to Tino York excluding any time spent in the performance of separately billed services. Lluvia Moraes PA-C 10/19/2023 10:16 AM documented in this encounter Nursing Notes * Meghan Riley LPN - 10/19/2023 9:54 AM EST The patient has been properly identified by confirmation of name and date of . Chief Complaint Patient presents with Acute UTI documented in this encounter Plan of Treatment Upcoming Encounters Date Type Department Care Team (Late st Contact Info) Description 11/15/2023 8:20 AM EST Telemedicine Nutrition & Weight Management, [facility] [address] [facility] [place] [address] Carly Campbell PA-C [address] [facility] [place] [address] Pending Results Name Type Priority Associated Diagnoses Date /Time MICROSCOPIC EXAM, URINE Lab Routine Urinary problem 10/19/2023 10:21 AM EST CULTURE, URINE, QUANTITATIVE Lab Routine Urinary problem 10/19/2023 10:20 AM EST Scheduled Orders Name Type Priority Associated Diagnoses Orde r Schedule US RENAL Medical Imaging Routine Urinary problem Expected: 10/19/2023, Expires: 11/19/2024 Health Maintenance Due Date Last Done Comments [...] as of this encounter Visit Diagnoses Diagnosis Urinary problem- Primary Other urinary problems UTI symptoms Other symptoms involving urinary system Oral aphthae documented in this encounter Care Teams Commercial Subcontractor Relationship Specialty Start Date End Date Tomasa Saldaña MD [address] [place] [address] PCP - General Internal Medicine 11/07/22 documented as of this encounter
--- OUTSIDE RECORDS SUMMARY | 2023-11-07 23:25 | External Medical Summary | Summary of Care ---
Author Name Unknown Organization [facility] Address [address] [place] [address] Phone [phone] Care Team Providers Care Machine Woodworking Sander Name Role Phone Tomasa Saldaña MD Primary Care Provider [phone] Reason for Visit * Reason Comments Acute UTI Encounter Details Date Type Department Care Team (Late st Contact Info) Description 10/19/2023 10:00 AM EST Office Visit Family Practice [facility] [address] [facility] ([place], [place]) [place] [address] Lluvia Moraes PAMassimoC [address], [place] [id number] Urinary problem*; UTI symptoms; Oral aphthae Allergies [...] 100 mg. 0 03/28/2023 Active Neomycin-Polymyxin- HC 3.5-83451-9 Otic SolutionIndications :Other infective acute otitis externa [...] PPD 03/29/2023,10/16/2005 Pneumococcal Conjugate Vacci ne, 20-valent ([id number]) 05/13/2023 Pneumococcal Conjugate Vacci ne, 7 Valent [...] Care Team (Late st Contact Info) Description 10/21/2023 11:30 AM EST Imaging Radiology, [address] [address] 11/15/2023 8:20 AM EST Telemedicine Nutrition & Weight Management, [facility] [address] [place] [address] Carly Campbell PA-C [address] [place] [address] Pending Results Name Type Priority Associated Diagnoses [...] aphthae documented in this encounter Care Teams Machine Woodworking Sander Relationship Specialty Start Date End Date Tomasa Saldaña MD [address] [place] [address] PCP - General Internal Medicine 11/07/22 documented as of this encounter
--- OUTSIDE RECORDS SUMMARY | 2023-11-07 23:25 | External Medical Summary ---
Author Name Unknown Address Unknown Organization [facility] [facility] [address] [place] [address] Laboratory Report Ordering Provider Test Date Status MILANA STOKES 10/19/2023 10:21:29 Final Observation Date Value Abnormality Reference (Units ) Status RBC, Urine 10/19/2023 10:21:29 0-2 0-2 (/HPF) Final WBC, Urine 10/19/2023 10:21:29 0-2 0-2 (/HPF) Final Bacteria [#/area] in Urine sediment by Microscopy high power field 10/19/2023 10:21:29 0-25 0-25 (/HPF) Final Performing Location [facility] [address] [place] [address]
--- OUTSIDE RECORDS SUMMARY | 2023-11-07 23:25 | External Medical Summary | Summary of Care ---
Author Name Unknown Organization [facility] Address [address] [place] [address] Phone [phone] Care Team Providers Care Screw Supervisor Name Role Phone Tomasa Saldaña MD Primary Care Provider [phone] Reason for Visit * Reason Comments Abdominal Pain Vaginal Bleeding Encounter Details Date Type Department Care Team (Late st Contact Info) Description 10/26/2023 2:40 PM EST Office Visit Family Practice [facility] [address] [place] [address] Hannah Vera PA-C [address] [place] [address] Pelvic pain in female* Allergies Active Allergy Reactions Criticality Noted Date Comments Escitalopram Other (Please comment) Medium 01/26/2021 Pt had lightheadedness. documented as of this encounter (statuses as of 10/26/2023) Medications Medication Sig Dispensed Refills Start Date [...] Active Trulicity 4.5 MG/0.5ML Subcutaneous Solution Pen-injector (Dulaglutide)Indic ations:PCOS (polycystic ovarian syndrome),Hyperins ulinemia Inject 4.5 mg under the skin once a week. 2 mL 0 10/02/2023 Active Sulfamethoxazole-T rimethoprim 800-160 MG Oral Tablet (Bactrim DS)Indications:Uri nary problem,UTI symptoms Take 1 Tablet by mouth in the morning and 1 Tablet before bedtime. Do all this for 7 days. Until gone. 14 Tablet 0 10/19/2023 3 Active Triamcinolone Acetonide 0.1 % Mouth/Throat Paste (Kenalog In Orabase)Indication s:Oral aphthae Apply to inside of cheek 3 times a day. To affected area. 5 g 1 10/19/2023 Active traZODone HCl 50 MG Oral Tablet (Desyrel) Take 1 Tablet by mouth at bedtime as needed for Sleep. 0 Active Gabapentin 100 MG Oral Capsule (Neurontin) Take 1 Capsule by mouth in the morning and 1 Capsule at noon and 1 Capsule before bedtime. 0 01/09/2023 3 Discontinue d(Medicatio n List Clean Up) traZODone HCl 300 MG Oral Tablet (Desyrel) Take 50 mg by mouth at bedtime. 0 12/12/2022 3 Discontinue d(Medicatio n/Dose Changed) Topiramate 25 MG Oral Tablet Take 1 Tablet by mouth in the morning and 1 Tablet before bedtime. 0 3 Discontinue d(Medicatio n List Clean Up) Neomycin-Polymyxin -HC 3.5-87328-5 Otic SolutionIndication s:Other infective acute otitis externa of left ear Administer 4 Drops into ears in the morning and 4 Drops at noon and 4 Drops before bedtime. To affected ear, for 10 days.. 10 mL 0 05/13/2023 3 Discontinue d(Medicatio n List Clean Up) Hospital, Clinic, or Other Facility Administered Medication Ordered Dose Route Frequency Start Date End Date Status ketorolac (Toradol) 60 MG/2ML IM inj 60 mgIndications:Pelvic pain in female 60 mg IM ONCE 10/26/2023 10/26/2023 Ended documented as of this encounter (statuses as of 10/26/2023) Active Problems Problem Noted Date Diagnosed Date [...] as of this encounter (statuses as of 10/26/2023) Resolved Problems Problem Noted Date Diagnosed Date Resolved Date Constipation 11/02/2022 12/07/2022 Prediabetes 03/21/2021 11/22/2022 Overview: Per Prediabetes protocol Obesity 06/09/2014 10/26/2022 documented as of this encounter (statuses as of 10/26/2023) Immunizations Name Administration Dates Next Due COVID-19 [...] PPD 03/29/2023 Pneumococcal Conjugate Vacci ne, 20-valent ([id number]) 05/13/2023 Pneumococcal Conjugate Vacci ne, 7 Valent [...] money to buy more. Often true 03/26/20 Within the past 12 months, t he [...] Sign Reading Time Taken Comments Blood Pressure 108/72 10/26/2023 2:46 PM EST Pulse 88 10/26/2023 2:46 PM EST Temperature 36.5 C (97.7 F) 10/26/2023 2:46 PM ES T Respiratory Rate 18 10/26/2023 2:46 PM EST Oxygen Saturation 96% 10/26/2023 2:46 PM EST Inhaled Oxygen Concentration - - Weight 138.3 kg (305 lb) 10/26/2023 2:46 PM EST Height - - Body Mass Index - - documented in this encounter Progress Notes * Hannah Vera PA-C - 10/26/2023 3:05 PM EST Images from the original note were not included. History of Present Illness Tino York is a 18 year old female that presents for Abdominal Pain and Vaginal Bleeding Patient is a 18 year old female who presents with pelvic pain which started last week. Has gotten progressively worse. Then, started vaginal bleeding 4 days ago. . Flow is heavy. Can go through a tampon and 2-3 pads within an hour. . Also notes clots. Hasn't had a male partner in over a year. No urinary symptoms Bowel movements loosely formed. No blood Getting a lot of hot flashes. No change in medications. Physical Exam Vitals: 10/26/23 1446 Temp: 36.5 C (97.7 F) Pulse: 88 Resp: 18 SpO2: 96% BP: 108/72 BP Readings from Last 3 Encounters: 10/26/23 108/72 10/19/23 128/70 05/13/23 122/78 Wt Readings from Last 3 Encounters: 10/26/23 (!) 138.3 kg (305 lb) 10/19/23 136.1 kg (300 lb) 09/30/23 (!) 139.3 kg (307 lb) General: alert, healthy, no distress, well nourished, well developed, comfortable, and cooperative Head: Normocephalic, No masses, lesions, tenderness or abnormalities Eye Exam: PERRLA, extraocular movements intact, conjunctiva are pink and non- injected, sclera clear Neck: supple, no adenopathy, no bruits, thyroid normal size, non-tender, without nodularity Heart: regular rate & rhythm, no murmur, and no gallops Lungs: chest symmetric with normal AP diameter, no chest deformities noted, normal respiratory rateand rhythm, no chest wall tenderness, diaphragmatic excursion normal, lungs clear to auscultation Abdomen: abdomen soft, non-tender, obese, normal bowel sounds, no masses or organomegaly, no rebound or guarding, no CVA tenderness, and no bladder distention identified Back: back symmetric, no curvature, no costovertebral angle tenderness, range of motion is normal, no skin lesions, erythema or scars, no tenderness to percussion or palpation I have reviewed the following results: None Assessment and Plan Pelvic pain in female (Primary) - CBC; Future; Expected date: 10/26/2023 - PT INR; Future; Expected date: 10/26/2023 - HCG QUALITATIVE, URINE; Future; Expected date: 10/26/2023 - US PELVIS TRANS-ABDOMINAL; Future; Expected date: 10/27/2023 - US PELVIS TRANS-VAGINAL NON-OB; Future; Expected date: 10/27/2023 - ketorolac (Toradol) 60 MG/2ML IM inj 60 mg - RETURN TO WORK OR SCHOOL Check-out note: Please schedule pelvic US Wrap-Up Time: I spent a total of 20-29 minutes (exact time 26 mins) on the date of service in preparation, delivery, and documentation of the care provided to Tino York excluding any time spent in the performance of separately billed services. documented in this encounter Nursing Notes * Karolina Hoskins LPN - 10/26/2023 3:37 PM EST Pre-Administration Time Out Procedure Performed: Yes Patient Identified (Ask Name/Date of ): Yes Does the patient have a fever greater than 101 degrees today? No Patient allergic to latex? No Has the patient ever fainted after receiving an injection? No VFC Stock: No Injection(s) verified: Yes, Injection Name: Ketorolac 60 mg Verified Side and Site: Yes Verified Shot(s) with Parent(s)/Patient: Yes * Karolina Hoskins LPN - 10/26/2023 2:44 PM EST Pt states she had an appointment last week and told the provider about abdominal pain and "floaters" in her urine. She had an US and urine test that came back normal. 3-4 days ago she states she began bleeding heavily- going through a tampon and 2 pads every 30 minutes or so. Has a lot of discomfort in her abdomen. She has PCOS so she doesn't have normal periods- usually doesn't have much bleeding at all, just some spotting. She's also reporting nausea and hot flashes. States the pain feels like someone is cutting in her stomach. documented in this encounter Plan of Treatment Upcoming Encounters Date Type Department Care Team (Late st Contact Info) Description 10/29/2023 10:00 AM EST [place] [address] [address] [facility] [place] [address] 10/29/2023 10:45 AM EST [facility], [place] [address] [facility] [place] [address] 11/15/2023 8:20 AM EST Telemedicine Nutrition & Weight Management, [address] [place] [address] Carly Campbell PA-C [address] [place] [address] Scheduled Orders Name Type Priority Associated Diagnoses Orde r Schedule CBC Lab Routine Pelvic pain in female Expected: 10/26/2023 (Approximate), Expires: 10/25/2024 PT INR Lab Routine Pelvic pain in female Expected: 10/26/2023 (Approximate), Expires: 10/25/2024 HCG QUALITATIVE, URINE Lab Routine Pelvic pain in female Expected: 10/26/2023, Expires: 10/26/2024 US PELVIS TRANS-ABDOMINAL Medical Imaging Routine Pelvic pain in female Expected: 10/27/2023, Expires: 11/26/2024 US PELVIS TRANS-VAGINAL NON-OB Medical Imaging Routine Pelvic pain in female Expected: 10/27/2023, Expires: 11/26/2024 Health Maintenance Due Date Last Done Comments [...] Additional history exists GARDASIL-HPV IMMUNIZATION SERIES Completed 01/19/20 21, 06/09/2014 MENINGOCOCCAL (MENACTRA/MENVEO) Completed 01/18/2021, 01/18/2021, 06/09/2014, Additional history exists Pneumococcal Vaccine: Pediat rics (0 to 5 Years) and At-Risk Patients (6 to 64 Years) Completed 05/13/2023 Influenza Vaccine (FLU shot) Completed 03/2023, 10/26/2022, 08/28/2021, Additional history exists documented as of this encounter Medical Devices Not on filedocumented as of this encounter Visit Diagnoses Diagnosis Pelvic pain in female- Primary Unspecified symptom associated with female genital organs documented in this encounter Administered Medications Inactive Administered Medications - up to 3 most recent administrations Medication Order MAR Action Action Date Dose Rate Site ketorolac (Toradol) 60 MG/2ML IM inj 60 mg 60 mg, Intramuscular, ONCE, On 10/26/23 at 1600, For 1 dose Given 10/26/2023 3:35 PM EST 60 mg Dorsogluteal Left documented in this encounter Care Teams Screw Supervisor Relationship Specialty Start Date End Date Tomasa Saldaña MD [address] [place] [address] PCP - General Internal Medicine 11/07/22 documented as of this encounter
--- OUTSIDE RECORDS SUMMARY | 2023-11-07 23:25 | External Medical Summary ---
Author Name Unknown Address Unknown Organization [facility] - [address] [place] [address] Laboratory Report Ordering Provider Test Date Status 10/31/2023 10:10:47 Final Observation Date Value Abnormality Reference (Units ) Status WBC, Total 10/31/2023 10:10:47 12.55 Above high normal 4 .00-10.80 (K/uL) Final RBC 10/31/2023 10:10:47 4.66 3.85-5.15 (M/uL) Final Hemoglobin 10/31/2023 10:10:47 13.7 12.0-15.3 (g/dL) Final HCT 10/31/2023 10:10:47 41.4 36.0-45.2 (%) Final MCV 10/31/2023 10:10:47 88.8 81.5-97.5 (fL) Final MCH 10/31/2023 10:10:47 29.4 27.0-34.0 (pg) Final MCHC 10/31/2023 10:10:47 33.1 32.0-36.0 (g/dL) Final RDW 10/31/2023 10:10:47 13.4 11.5-15.5 (%) Final Platelets 10/31/2023 10:10:47 308 140-400 (K /uL) Final MPV 10/31/2023 10:10:47 9.1 6.6-11.1 ( fL) Final Performing Location [facility] [place] [address]
--- OUTSIDE RECORDS SUMMARY | 2023-11-07 23:25 | External Medical Summary | Summary of Care ---
Author Name Unknown Organization [facility] Address [address] [place] [address] Phone [phone] Care Team Providers Care Oven Unloader Name Role Phone Tomasa Saldaña MD Primary Care Provider [phone] Reason for Visit * Reason Comments Acute UTI Encounter Details Date Type Department Care Team (Late st Contact Info) Description 10/19/2023 10:00 AM EST Office Visit Family Practice [facility] [address] [facility] [place] [address] Lluvia Moraes PAMassimoC [address] [place], [place] [phone] Urinary problem*; UTI symptoms; Oral aphthae Allergies [...] 100 mg. 0 03/28/2023 Active Neomycin-Polymyxin- HC 3.5-65840-7 Otic SolutionIndications :Other infective acute otitis externa [...] PPD 03/29/2023 Pneumococcal Conjugate Vacci ne, 20-valent ([id number]) 05/13/2023 Pneumococcal Conjugate Vacci ne, 7 Valent [...] AM EST Telemedicine Nutrition & Weight Management, [facility] [address] [facility] [place] [address] Carly Campbell PA-C [address] [facility] [place] [address] Pending Results Name Type Priority Associated Diagnoses Date /Time CULTURE, URINE, QUANTITATIVE Lab Routine Urinary problem 10/19/2023 10:20 AM EST Scheduled Orders Name Type Priority Associated Diagnoses Orde r Schedule MICROSCOPIC EXAM, URINE Lab Routine Urinary problem Ordered: 10/19/2023 RENAL Medical Imaging Routine Urinary problem Expected: [...] aphthae documented in this encounter Care Teams Oven Unloader Relationship Specialty Start Date End Date Tomasa Saldaña MD [address] [place] [address] PCP - General Internal Medicine 11/07/22 documented as of this encounter
--- OUTSIDE RECORDS SUMMARY | 2023-11-07 23:25 | External Medical Summary | Summary of Care ---
Author Name Unknown Organization [facility] Address [address] [place] [address] Phone [phone] Care Team Providers Care Clin Application Specialist Name Role Phone Tomasa Saldaña MD Primary Care Provider [phone] Reason for Visit * Reason Comments Outpatient Testing Encounter Details Date Type Department Care Team (Late st Contact Info) Description 10/31/2023 10:00 AM EST Laboratory Laboratory, [facility] [address] [place] [id number] [facility] [address] [place] [address] Pelvic pain in female Allergies Active Allergy Reactions Criticality Noted Date Comments Escitalopram Other (Please comment) Medium 01/26/2021 Pt had lightheadedness. documented as of this encounter (statuses as of 10/31/2023) Medications Medication Sig Dispensed Refills Start Date [...] as of this encounter (statuses as of 10/31/2023) Active Problems Problem Noted Date Diagnosed Date Food insecurity 04/22/2023 Overview: Per [facility] Protocol PCOS (polycystic ovarian syndrome) 03/26/2023 Hyperinsulinemia 11/02/2022 Bipolar 2 disorder, major depressive episode Body mass index (BMI) of 50.0 to 59.9 in adult 0 03/21/2021 Overview: Per Obesity protocol Depression 06/09/2014 ADVANCE DIRECTIVE INFORMATION 10/16/2005 Overview: Not applicable (under age of 18) documented as of this encounter (statuses as of 10/31/2023) Resolved Problems Problem Noted Date Diagnosed Date Resolved Date Constipation 11/02/2022 12/07/2022 Prediabetes 03/21/2021 11/22/2022 Overview: Per Prediabetes protocol Obesity 06/09/2014 10/26/2022 documented as of this encounter (statuses as of 10/31/2023) Immunizations Name Administration Dates Next Due COVID-19 [...] PPD 03/29/2023 Pneumococcal Conjugate Vacci ne, 20-valent ([id number]) 05/13/2023 Pneumococcal Conjugate Vacci ne, 7 Valent [...] AM EST Telemedicine Nutrition & Weight Management, [facility] [address] [place] [address] Carly Campbell PA-C [address] [place] [address] Pending Results Name Type Priority Associated Diagnoses Date /Time HCG QUALITATIVE, URINE Lab Routine Pelvic pain in female 10/31/2023 11:29 AM EST Health Maintenance Due Date Last Done Comments Hepatitis B (1 of 3 - 3-dose series) 2003 Depression, Most Recent Scor e >= 10 (will fire each visit until score < 10) 06/01/2023 05/31/2023 COVID-19 Vaccine (3 2022-2 4 season) 2023 08/28/2021, 07/15/2021 Yearly [...] Procedure Name Priority Date/Time Associated Diagnosis Comments PT INR Routine 10/31/2023 10:10 AM EST Pelvic pain in female CBC Routine 10/31/2023 10:10 AM EST Pelvic pain in female documented in this encounter Results * PT INR (10/31/2023 10:10 AM EST) Prothrombin Time 13.5 11.6 - 15.2 seconds 10/31/2023 10:46 AM EST [facility] [place] [facility] INR 1.0 0.8 - 1.2 10/31/2023 10:46 AM EST [facility] [place] [facility] Blood Venous blood specimen / Unknown Venipuncture / Unknown 10/31/2023 10:10 AM EST 10/31/2023 10:10 AM EST Narrative [facility] [place] [facility] - 10/31/2023 10:46 AM EST Warfarin Therapy INR: 2.0-3.0 conventional anticoagulation INR: 2.5-3.5 high intensity anticoagulation February A Jody GODFREY LAB BLOOD ORDERABLES [facility] [place] [facility] [address] [place] [address] * (ABNORMAL) CBC (10/31/2023 10:10 AM EST) WBC 12.55(H) 4.00 - 10.80 K/uL 10/31/2023 10:20 AM EST [facility] [place] [facility] RBC 4.66 3.85 - 5.15 M/uL 10/31/2023 10:20 AM EST [facility] [place] [facility] HGB 13.7 12.0 - 15.3 g/dL 10/31/2023 10:20 AM EST [facility] [place] [facility] HCT 41.4 36.0 - 45.2 % 10/31/2023 10:20 AM EST [facility] [place] [facility]10 MCV 88.8 81.5 - 97.5 fL 10/31/2023 10:20 AM EST [facility] [place] [facility] MCH 29.4 27.0 - 34.0 pg 10/31/2023 10:20 AM EST [facility] [place] [facility]10 MCHC 33.1 32.0 - 36.0 g/dL 10/31/2023 10:20 AM EST [facility] [place] [facility] RDW 13.4 11.5 - 15.5 % 10/31/2023 10:20 AM EST [facility] [place] [facility]-10 PLT 308 140 - 400 K/uL 10/31/2023 10:20 AM EST [facility] [place] [facility] MPV 9.1 6.6 - 11.1 fL 10/31/2023 10:20 AM EST [facility] [place] [facility] Blood Venous blood specimen / Unknown Venipuncture / Unknown 10/31/2023 10:10 AM EST 10/31/2023 10:10 AM EST Hannah Rebekah Rine PA-C LAB BLOOD ORDERABLES [facility] [place] [facility] [facility] [place] [address] documented in this encounter Visit Diagnoses Diagnosis Pelvic pain in female Unspecified symptom associated with female genital organs documented in this encounter Care Teams Clin Application Specialist Relationship Specialty Start Date End Date Tomasa Saldaña MD [address] [place] [address] PCP - General Internal Medicine 11/07/22 documented as of this encounter
--- OUTSIDE RECORDS SUMMARY | 2023-11-07 23:25 | External Medical Summary ---
Author Name Unknown Address Unknown Organization [facility] - [address] [place] [address] Laboratory Report Ordering Provider Test Date Status 10/31/2023 10:10:47 Final Warfarin Therapy
INR: 2 .0-3.0 conventional anticoagulation
INR: 2.5- 3.5 high intensity anticoagulation Observation Date Value Abnormality Reference (Units ) Status PT 10/31/2023 10:10:47 13.5 11.6-15.2 (seconds) Final INR 10/31/2023 10:10:47 1.0 0.8-1.2 Final Performing Location [facility] [place] [address]
--- OUTSIDE RECORDS SUMMARY | 2023-11-07 23:26 | External Medical Summary | Summary of Care ---
Author Name Unknown Organization [facility] Address [address] [place] [address] Phone [phone] Care Team Providers Care Library Media Technician Name Role Phone Cristobal Saldaña MD Primary Care Provider [phone] Reason for Visit * Reason Onset Date Comments Medication Refill 07/24/2023 Encounter Details Date Type Department Care Team Description 07/24/2023 Telephone [facility] [address] [place] [address] Cristobal Saldaña MD [address] [place] [address] Medication Refill Allergies Active Allergy [...] THE MORNING 0 03/28/2023 Active Neomycin-Polymyxin -HC 3.5-09753-4 Otic SolutionIndication s:Other infective acute otitis externa [...] PPD 03/29/2023 Pneumococcal Conjugate Vacci ne, 20-valent ([id number]) 05/13/2023 Pneumococcal Conjugate Vacci ne, 7 Valent [...] encounter Miscellaneous Notes * Telephone Encounter - Cristobal Saldaña MD - 07/30/2023 9:33 AM EDT Pt will need to keep albuterol prn use for SOB And also should see me for further work up please And if pt is smoking, should stop it too * Telephone Encounter - Nighat Gilliam [facility] - 07/29/2023 2:48 PM EDTSigned Prescriptions: Disp Refills Proventil HFA 108 (90 Base) MCG/ACT Inhala*18 g 5 Sig: Inhale 2 Puffs by mouth every 4 hours as needed for Wheezing (SOB). Authorizing Provider: CRISTOBAL SALDAÑA Ordering User: NIGHAT GILLIAM * Telephone Encounter - Nighat Gilliam [facility] - 07/29/2023 2:39 PM EDT Patient contacted [...] [facility] [phone] 07/29/2023 2:41 PM * Telephone Encounter - Reina Haywood [facility] - 07/29/2023 4:26 AM EDTPending Prescriptions: Disp Refills Proventil HFA 108 (90 Base) MCG/ACT Inhala*18 g 5 Sig: Inhale 2Puffs by mouth every 4 hours as needed for Wheezing (SOB). documented in this encounter Plan of Treatment Upcoming Encounters Date Type Specialty Care Team Description 09/30/2023 Telemedicine Sleep Disorders [facility], [address] [place] [address] Health Maintenance Due Date Last Done Comments [...] filedocumented as of this encounter Care Teams Library Media Technician Relationship Specialty Start Date End Date Cristobal Saldaña MD [address] [place] [address] PCP - General Internal Medicine 11/07/22 documented as of this encounter
--- OUTSIDE RECORDS SUMMARY | 2023-11-07 23:26 | External Medical Summary | Summary of Care ---
Author Name Unknown Organization [facility] Address [address] [place] [address] Phone [phone] Care Team Providers Care Clinical Informatics Specialist Name Role Phone Tomasa Saldaña MD Primary Care Provider [phone] Reason for Visit * - Authorized Specialty Diagnoses / Procedures Referred By Contac t Referred To Contact Referral ID Status Reason Start Date Expiration Date V isits Requested Visits Authorized [id number] Authorized 05/01/2023 04/29/2024 [id number] Encounter Details Date Type Department Care Team Description 06/12/2023 Telemedicine Psychiatry, [facility] [address] [place] [address] Barbara Szymanski CRNP [address] [place] [id number] No Show for psych appt* Allergies Active Allergy Reactions Severity Noted Date Comments Escitalopram Other (Please comment) Medium 01/26/2021 Pt had lightheadedness. documented as of this encounter (statuses as of 06/12/2023) Medications Medication Sig Dispensed Refills Start Date End Date Status metFORMIN HCl ER 500 MG Oral Tablet Extended Release 24 Hour (Glucophage XR)Indications:Class 3 severe obesity without serious comorbidity with body mass index (BMI) of 60.0 to 69.9 in adult, unspecified obesity type (HCC) Take 1 Tablet by mouth in the morning. 30 Tablet 2 10/29/2022 Active Gabapentin 100 MG Oral Capsule (Neurontin) Take 1 Capsule by mouth in the morning and 1 Capsule at noon and 1 Capsule before bedtime. 0 01/09/2023 Active traZODone HCl 300 MG Oral Tablet (Desyrel) Take 1 Tablet by mouth at bedtime. 0 12/12/2022 Active Proventil HFA 108 (90 Base) MCG/ACT Inhalation Aerosol Solution Inhale 2 Puffs by mouth every 4 hours as needed for Wheezing (SOB). 18 g 5 04/18/2023 Active Loratadine 10 MG Oral Tablet (Claritin) [...] DAILY IN THE MORNING 0 03/28/2023 Active Gymlwcse-Nykmxcmns-F C 3.5-86753-6 Otic SolutionIndications: Other infective acute otitis externa of left ear Administer 4 Drops into ears in the morning and 4 Drops at noon and 4 Drops before bedtime. To affected ear, for 10 days.. 10 mL 0 05/13/2023 Active Trulicity 1.5 MG/0.5ML Subcutaneous Solution Pen-injector (Dulaglutide)Indicat ions:Hyperinsulinemi a,PCOS (polycystic ovarian syndrome) Inject 1.5 mg under the skin once a week. 2 mL 3 06/07/2023 Active documented as of this encounter (statuses as of 06/12/2023) Active Problems Problem Noted Date Food insecurity [...] as of this encounter (statuses as of 06/12/2023) Resolved Problems Problem Noted Date Resolved Date Constipation 11/02/2022 12/07/2022 Prediabetes 03/21/2021 11/22/2022 Overview: Per Prediabetes protocol Obesity 06/09/2014 10/26/2022 documented as of this encounter (statuses as of 06/12/2023) Immunizations Name Administration Dates Next Due COVID-19 mRNA, LNP-s, No Pre serve, 2-Dose Series (Moderna) 08/28/2021,07/15/2021 DTaP - Dipth/Tet/Acell Pertussis 004,2003,2003,05/11 DTaP HIB - Dipth/Tet/Acell Pert/HIB 04/20/2008 HIB 3 dose (Pedvax) 03/29/2004,2003,2002 HPV Vaccine, 4-Valent 06/09/2014 HPV Vaccine, 9-Valent 01/18/2021 Haemophilus B (HIB) 03/29/2004,2003,2002 IPV - Polio Virus Vaccine (Inact) 04/20/2008,12/2002,2003 MMR - Measles/Mumps/Rubella Vaccine 04/20/2008,0 03/29/2004 Meningococcal Conjugate Vacc ine (Menactra/Menveo) 06/09/2014 Meningococcal MCV4O Conjugat e Vaccine (Menveo) 01/18/2021 Meningococcal MCV4P Conjugat e Vaccine (Menactra) 01/18/2021,06/09/2014 PPD 03/29/2023 Pneumococcal Conjugate Vacci ne, 20-valent ([id number]) 05/13/2023 Pneumococcal Conjugate Vacci ne, 7 Valent 2003,2003,2003 Seasonal Influenza Intranasal 09/28/2013 Seasonal Influenza Virus Vac cine, Unspecified Formulation 08/28/2021,09/28/2013,2003 Seasonal Influenza, Quadriva lent, No Preserve, 6 Mons & Above, IM 10/26/2022 Seasonal Influenza, Split, I IV3, No [...] on file documented as of this encounter Progress Notes * NAHUM Bah - 06/12/2023 2:00 PM EDT Patient failed to keep appointment. This adjusto writer operator called the number listed in chart, automatic message said ""not accepting calls at thistime", tried again with the same message, was not able to leave a voicemail. documented in this encounter Plan of Treatment Upcoming Encounters Date Type Specialty Care Team Description 06/14/2023 Telemedicine Psychology Sukhwinder Goetz, [employer]ED FR[employer] W[employer]ER [address] [facility] [address] 06/26/2023 Office Visit Gastroenterology Rina Li PA-C [address] [place] [address] 06/26/2023 Nurse Only Gastroenterology [place], Nutrition Ed Class 1 Leobardo [address] [place] [address] 06/28/2023 Telemedicine Psychology Jann Storm, [employer]ER [address] [place] [address] 09/30/2023 Telemedicine Sleep Disorders Haleigh Rich, [address] [place] [address] Health Maintenance Due Date Last Done Comments [...] as of this encounter Visit Diagnoses Diagnosis No Show for psych appt- Primary documented in this encounter Care Teams Clinical Informatics Specialist Relationship Specialty Start Date End Date Tomasa Saldaña MD [address] [place] [address] PCP - General Internal Medicine 11/07/22 documented as of this encounter
--- OUTSIDE RECORDS SUMMARY | 2023-11-07 23:26 | External Medical Summary | Summary of Care ---
Author Name Unknown Organization [facility] Address [address] [place] [address] Phone [phone] Care Team Providers Care Patient Safety Coordinator Name Role Phone Tomasa Saldaña MD Primary Care Provider [phone] Reason for Visit * Reason Onset Date Comments Medication Refill 07/24/2023 Encounter Details Date Type Department Care Team Description 07/24/2023 Refill Nutrition & Weight Management, [facility] [address] [place] [address] Carly Campbell PA-C [address] [place] [id number] Hyperinsulinemia; PCOS (polycystic ovarian syndrome) Allergies Active Allergy Reactions Severity Noted Date Comments Escitalopram Other (Please comment) Medium 01/26/2021 Pt had lightheadedness. documented as of this encounter (statuses as of 07/24/2023) Medications Medication Sig Dispensed Refills Start Date [...] DAILY IN THE MORNING 0 03/28/2023 Active Vqrgqarb-Fedhwixul-L C 3.5-86113-4 Otic SolutionIndications: Other infective acute otitis externa [...] the morning. 30 Tablet 2 07/02/2023 Active Trulicity 1.5 MG/0.5ML Subcutaneous Solution Pen-injector (Dulaglutide)Indicat ions:Hyperinsulinemi a,PCOS (polycystic ovarian syndrome) Inject 1.5 mg under the skin once a week. 2 mL 3 07/02/2023 Active documented as of this encounter (statuses as of 07/24/2023) Active Problems Problem Noted Date Food insecurity [...] as of this encounter (statuses as of 07/24/2023) Resolved Problems Problem Noted Date Resolved Date Constipation 11/02/2022 12/07/2022 Prediabetes 03/21/2021 11/22/2022 Overview: Per Prediabetes protocol Obesity 06/09/2014 10/26/2022 documented as of this encounter (statuses as of 07/24/2023) Immunizations Name Administration Dates Next Due COVID-19 [...] PPD 03/29/2023 Pneumococcal Conjugate Vacci ne, 20-valent ([id number]) 05/13/2023 Pneumococcal Conjugate Vacci ne, 7 Valent [...] Encounters Date Type Specialty Care Team Description 07/31/2023 Telemedicine Gastroenterology Rina Li PA-C [address] [place] [address] 09/30/2023 Telemedicine Sleep Disorders Haleigh Rich DO [address] [place] [address] Health Maintenance Due Date Last Done Comments [...] as of this encounter Visit Diagnoses Diagnosis Hyperinsulinemia Other specified hypoglycemia PCOS (polycystic ovarian syndrome) Polycystic ovaries documented in this encounter Care Teams Patient Safety Coordinator Relationship Specialty Start Date End Date Tomasa Saldaña MD [address] [place] [address] PCP - General Internal Medicine 11/07/22 documented as of this encounter
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
--- OUTSIDE RECORDS SUMMARY | 2023-11-07 23:26 | External Medical Summary | Summary of Care ---
Author Name Unknown Organization [facility] Address [address] [place] [address] Phone [phone] Care Team Providers Care Tool Grinding Machine Operator Name Role Phone Tomasa Saldaña MD Primary Care Provider [phone] Encounter Details Date Type Department Care Team Description 07/31/2023 Telemedicine Nutrition & Weight Management, [facility] [address] [place] [id number] Rina Li PA-C [address] [place] [id number] Morbid obesity due to excess calories (HCC)*; Abnormal weight gain; PCOS (polycystic ovarian syndrome); Hyperinsulinemia; Bipolar 2 disorder, major depressive episode (HCC); Gastroesophageal reflux disease without esophagitis; Snoring Allergies Active Allergy Reactions Severity Noted Date [...] THE MORNING 0 03/28/2023 Active Neomycin-Polymyxin -HC 3.5-90775-4 Otic SolutionIndication s:Other infective acute otitis externa [...] Active Trulicity 1.5 MG/0.5ML Subcutaneous Solution Pen-injector (Dulaglutide)Indic ations:PCOS (polycystic ovarian syndrome),Hyperins ulinemia Inject 1.5 mg under the skin once a week. 2 mL 3 07/31/2023 Active Trulicity 1.5 MG/0.5ML Subcutaneous Solution Pen-injector (Dulaglutide)Indic [...] PPD 03/29/2023 Pneumococcal Conjugate Vacci ne, 20-valent ([id number]) 05/13/2023 Pneumococcal Conjugate Vacci ne, 7 Valent [...] as of this encounter Progress Notes * Rina Li PA-C - 07/31/2023 1:05 PM EDT [facility] Note Patient location: HOME. I was in a hospital or clinic location. After connecting through televideo,patient was verified with two unique identifiers. Patient (or authorized legal associate sales representative) was then informed that this was a Telemedicine visit and being conducted confidentially over secure lines. Methods to assure confidentiality were taken. Patient acknowledged consent and understanding of pr ivacy and security of the Telemedicine visit. The patient agreed to participate. There are no exam notes on file for this visit. Tino York presents in follow up to the comprehensive weight management clinic. The patient is a 18 year old female Wt Readings from Last 6 Encounters: 05/13/23 (!) 156.9 kg (346 lb) 03/26/23 (!) 160.1 kg (353 lb) 02/18/23 (!) 156.6 kg (345 lb 3.2 oz) (>99 %, Z= 3.07)* 12/12/22 (!) 145.6 kg (321 lb) (>99 %, Z= 2.95)* 12/07/22 (!) 144.6 kg (318 lb 12.8 oz) (>99 %, Z= 2.94)* 11/13/22 (!) 142.9 kg (315 lb) (>99 %, Z= 2.92)* * Growth percentiles are based on CDC (Girls, 2-20 Years) data. Patient is receiving ongoing education regarding dietary and physical modifications for weight loss. - Initial clinic visit 06/07/2023 Weight 344 lbs Height 64" There is no height or weight on file to calculate BMI. 59.39 Program goal weight 312 - Today's weight: 326 lbs - Total weight loss of -18lbs since initial weight in clinic - Patient's last follow up with GI/Nutrition clinic was on 06/07/23. - The patient's weight has -18 lbs since the last visit 07/31/23 -on Trulicity 1.5mg -having nausea and occasional vomiting if overeating -just moved to [place], was scheduled for nutrition class today but couldn't make it d/t transportation -states her overall goal is bariatric surgery, but not sure now is the best time Visit 06/07/23 - Overall goal: is interested in gastric bypass - Wt hx: always struggled - Highest wt as adult: 353 Patient Active Problem List Diagnosis Code ADVANCE DIRECTIVE INFORMATION Depression F32.A Body mass index (BMI) of 50.0 to 59.9 in adult ([facility]) Z68.43 Bipolar 2 disorder, major depressive episode ([facility]) F31.81 Hyperinsulinemia E16.1 PCOS (polycystic ovarian syndrome) E28.2 Food insecurity Z59.41 Review of Systems: Review of Systems Gastrointestinal: Positive for diarrhea, nausea and vomiting. Negative for abdominal pain and constipation. Current Medications: Current Outpatient Medications Medication Sig Dispense Refill Trulicity 1.5 MG/0.5ML Subcutaneous Solution Pen-injector (Dulaglutide) Inject 1.5 mg under the skin once a week. 2 mL 3 Gabapentin 100 MG Oral Capsule (Neurontin) Take 1 Capsule by mouth in the morning and 1 Capsule at noon and 1 Capsule before bedtime. traZODone HCl 300 MG Oral Tablet (Desyrel) Take 1 Tablet by mouth at bedtime. Loratadine 10 MG Oral Tablet (Claritin) Take [...] BY MOUTH ONCE DAILY IN THE MORNING Tnequuqy-Iywaqogps-WD 3.5-30747-0 Otic Solution Administer 4 Drops into ears in the morning and 4 Drops at noon and 4 Drops before bedtime. To affected ear, for 10 days.. 10 mL 0 metFORMIN HCl ER 500 MG Oral Tablet Extended Release 24 Hour (Glucophage XR) Take 1 Tablet by mouthin the morning. 30 Tablet 2 Proventil HFA 108 (90 Base) MCG/ACT Inhalation Aerosol Solution Inhale 2 Puffs by mouth every 4 hours as needed for Wheezing (SOB). 18 g 5 No current facility-administered medications for this visit. Water intake: yes Prescribed diet: 5568-3172 Calorie Controlled Current diet: Breakfast-- low fat yogurt with blueberries and banana or honey Snack-- skips Lunch-- chicken salad Snack-- skips Dinner-- yogurt Snack-- skips Drinks-- water, green tea Meals Away from Home-- rare Food logs: No Type of exercise: ADL Weight loss Pharmacotherapy: yes Trulicity 1.5mg There were no vitals taken for this visit. PHYSICAL EXAMINATION: General: Patient is well appearing and in no acute distress. Skin: No obvious rashes. HEENT: Head is atraumatic, normocephalic. Cardiovascular: Regular rate and effort of breathing. No conversational dyspnea. No cyanosis. Neuro: No obvious focal neurological deficits. Psych: Appropriate mood and affect. Assessment and Plan: Abnormal weight gain / There is no height or weight on file to calculate BMI. / Morbid obesity : - Would like to proceed with medical management - Barriers are consistency. - Motivators are feeling better overall, avoiding/reducing co-morbid conditions. - The patient was encouraged to to avoid all fruit juices and regular sodas, consume at least 64 ounces of water per day, keep food logs and get weighed on a weekly basis. They were encouraged to increase physical activity as prescribed. - Handouts regarding nutrition and physical activity were provided, as appropriate. 1. Keep a food log. If you bite it, write it! Apps like [employer] or [employer] [address] Calorie goal: 2000 2. Drink 48-64 ounces of non-caloric beverages per day. No fruit juices or regular soda Try crystal light, propel, zero calorie flavored water, plain water 3. Goal of 30 minutes of exercise 5 days per week (150 minutes per week--can be divided up however you would like) Aim for aerobic activity and muscle strengthening activities 4. Increase fruit and vegetable servings to 5-6 per day. 1/2 of your plate should be fruits and vegetables 5. Eat 100-200 calories within 1-2 hours of awakening, and every 4 - 6 hours while awake. (3 meals with snacks in between) Choose 100 calorie or less snacks, protein snacks 7. Weight yourself weekly and follow trend over time (day to day weight fluctuations can be discouraging) 8. Decrease starches like bread, pasta, cereal, potatoes and corn. Aim for of your plate Try substitutions like zoodles, lentil pasta, cauliflower mashed potatoes, whole grain foods, quinoa Limit junk/processed foods Chips, pretzels, cookies, cakes, sweets White bread/rolls/wraps/bagels, white rice 9. Increase protein to feel full longer (1/4 of your plate) Diagnoses and all orders for this visit: Morbid obesity due to excess calories (HCC) -continue current dose of Trulicity d/t GI sx -plan increase next visit -consider switch to Wegovy if in stock -increase fruits and veggies Abnormal weight gain PCOS (polycystic ovarian syndrome) - Trulicity 1.5 MG/0.5ML Subcutaneous Solution Pen-injector (Dulaglutide); Inject 1.5 mg under the skin once a week. Patients with PCOS/hyperinsulinemia tend to respond well to a low-carb diet. Limit processed carbs/sugary foods & drinks; focus on meals consisting primarily of protein, vegetables, fruit, healthy fats, & whole grains Hyperinsulinemia - Trulicity 1.5 MG/0.5ML Subcutaneous Solution Pen-injector (Dulaglutide); Inject 1.5 mg under the skin once a week. Bipolar 2 disorder, major depressive episode (HCC) -stable Gastroesophageal reflux disease without esophagitis Snoring [facility] at [facility] The patient agreed to try the plan as discussed and return in 3 months. They were encouraged to call or send a patient portal message in the meantime with any questions or concerns prior to their next clinic visit. I spent a total of 20 minutes on the date of service in preparation, delivery, and documentation ofthe care provided to Tino York excluding any time spent in the performance of separately billed services. This included but was no limited to providing counseling about the benefits of weight loss, about their nutritional status, detailed explanations about calorie count, types of nutrients to choose, and composition of the meals. Motivational interview provided in order to prepare the patient to achieve future goals. Rina Li PA-C documented in this encounter Plan of Treatment Upcoming Encounters Date Type Specialty Care Team Description 09/30/2023 Telemedicine Sleep Disorders Haleigh Rich, DO [address] [place] [id number] Health Maintenance Due Date Last Done Comments [...] as of this encounter Visit Diagnoses Diagnosis Morbid obesity due to excess calories (HCC)- Primary Abnormal weight gain PCOS (polycystic ovarian syndrome) Polycystic ovaries Hyperinsulinemia Other specified hypoglycemia Bipolar 2 disorder, major depressive episode (HCC) Other bipolar disorders Gastroesophageal reflux disease without esophagitis Esophageal reflux Snoring Other dyspnea and respiratory abnormality documented in this encounter Care Teams Tool Grinding Machine Operator Relationship Specialty Start Date End Date Tomasa Saldaña MD [address] [place] [address] PCP - General Internal Medicine 11/07/22 documented as of this encounter
--- OUTSIDE RECORDS SUMMARY | 2023-11-07 23:26 | External Medical Summary | Summary of Care ---
Author Name Unknown Organization [facility] Address [address] [place] [address] Phone [phone] Care Team Providers Care Peoplesoft Hcm Consultant Name Role Phone Tomasa Saldaña MD Primary Care Provider [phone] Reason for Referral * Evaluate & Treat - Unlimited Visits (Within 10 days (routine)) - Pending Review Specialty Diagnoses / Procedures Referred By Contac t Referred To Contact Sleep Medicine / Sleep Disorders Diagnoses Snoring Carly Campbell PA-C [address] [place] [address] Referral ID Status Reason Start Date Expiration Date Visits Requested Visits Authorized [id number] Pending Review Specialty Services Required 06/07/2023 2 2 Question Answer GS CAD SLEEP MED ADULT REFERRAL Sleep Apnea Testing and Management Does the patient snore and/or gasp at night or has been told they stop breathing at night? Yes Referral Priority Within 10 days (routine) Comments Stop bang >3, pre bariatric surgery Reason for Visit * Evaluate & Treat - Unlimited Visits (Within 10 days (routine)) - Pending Review Specialty Diagnoses / Procedures Referred By Contact Referred To Contact GI NUTRITION/IM / Gastroenterology Diagnoses Body mass index (BMI) of 50.0 to 59.9 in adult (HCC) Tomasa Saldaña MD [address] [place] [id number] Referral ID Status Reason Start Date Expiration Date Visits Requested Visits Authorized [id number] Pending Review Specialty Services Required 03/26/[phone] Encounter Details Date Type Department Care Team Description 06/07/2023 Telemedicine Nutrition & Weight Management, [facility] [address] [place] [address] Carly Campbell PA-C [address] [place] [address] Morbid obesity due to excess calories (HCC)*; Snoring; Abnormal weight gain; Hyperinsulinemia; Bipolar 2 disorder, major depressive episode (HCC); PCOS (polycystic ovarian syndrome) Allergies Active Allergy Reactions Severity Noted Date Comments Escitalopram Other (Please comment) Medium 01/26/2021 Pt had lightheadedness. documented as of this encounter (statuses as of 06/07/2023) Medications Medication Sig Dispensed Refills Start Date [...] THE MORNING 0 03/28/2023 Active Neomycin-Polymyxin -HC 3.5-92756-3 Otic SolutionIndication s:Other infective acute otitis externa [...] a week. 2 mL 3 06/07/2023 Active Trulicity 0.75 MG/0.5ML Subcutaneous Solution Pen-injector (Dulaglutide) Inject 0.75 mg under the skin once a week. 1.5 mL 3 11/20/2022 Discontinued documented as of this encounter (statuses as of 06/07/2023) Active Problems Problem Noted Date Food insecurity [...] as of this encounter (statuses as of 06/07/2023) Resolved Problems Problem Noted Date Resolved Date Constipation 11/02/2022 12/07/2022 Prediabetes 03/21/2021 11/22/2022 Overview: Per Prediabetes protocol Obesity 06/09/2014 10/26/2022 documented as of this encounter (statuses as of 06/07/2023) Immunizations Name Administration Dates Next Due COVID-19 [...] PPD 03/29/2023 Pneumococcal Conjugate Vacci ne, 20-valent ([id number]) 05/13/2023 Pneumococcal Conjugate Vacci ne, 7 Valent [...] as of this encounter Progress Notes * Carly Campbell PA-C - 06/07/2023 8:30 AM EDT [facility]IN[facility] CONSULTATION INITIAL CONSULT Referring Physician: Tomasa Saldaña MD Patient location: HOME. I was not in a hospital or clinic location. After connecting through [employer], patient was verified with two unique identifiers. [...] on file for this visit. Tino York is a 18 year old patient who presents to the [facility] for further recommendations. HPI: The patient suffers from Morbid obesity Patient is interested in the following treatment options for obesity: surgical options including Mago-en-Y gastric bypass. Previous Weight Management Interventions: The patient has tried weight loss in the past without significant intermediate frame tender success. Previous interventions: Self-directed. Trulicity, metformin Diet, exercise - Initial clinic visit 06/07/2023 Weight 344 lbs Height 64" There is no height or weight on file to calculate BMI. 59.39 Program goal weight 312 Visit 06/07/23 - Overall goal: is interested in gastric bypass - Wt hx: always struggled - Highest wt as adult: 353 Wt Readings from Last 6 Encounters: 05/13/23 [...] 2.92)* * Growth percentiles are based on [facility][NOTE 3] (Girls, 2-20 Years) data. Current Diet: Describes typical diet history/24 hr recall Breakfast: skips Snacks: none Lunch: wrap or salad Snacks: sometimes -- nuts Dinner: chicken, salad, wraps Snacks: usually has a snack -- nuts, ice cream Drinks: water, coffee Restaurant meals: rare Activity: ADL Past Medical History Glaucoma No Hypertension: No CAD: No Congestive heart failure No Dyslipidemia: No Lipid Panel Results: Results for orders placed or performed in visit on 06/01/13 LIPID PANEL Result Value Ref Range HOURS FASTING 12 hours Triglycerides 230 (H) <200 mg/dL Cholesterol 141 <200 mg/dL HDL Cholesterol 23 (L) >34 mg/dL Cholesterol-HDL Ratio 6.1 LDL Cholesterol 72 0 - 129 mg/dL Results for orders placed or performed in visit on 11/08/22 LIPID PANEL WITH DIRECT LDL IF TG IS HIGH Result Value Ref Range Triglycerides 112 <=174 mg/dL Cholesterol 202 (H) <200 mg/dL HDL Cholesterol 40 (L) >49 mg/dL Non-HDL Cholesterol 162 (H) <=159 mg/dL LDL Cholesterol 140 (H) <=129 mg/dL DVT/PE, clotting disorder: No Stroke: No Seizures: No Sleep Apnea: No-- was supposed to be tested Asthma: No COPD: No Patient denies personal or family history of medullary thyroid carcinoma. Patient denies personal or family history of multiple endocrine neoplasia syndrome type II Patient denies personal history of pancreatitis Fatty Liver: yes Diabetes: No Hemoglobin A1C last 3 results: Lab Results Component Value Date/Time HEMOGLOBIN (HEMOCUE) POCT - [facility] 12.0 12/30/2006 03:56 PM HEMOGLOBIN (HEMOCUE) POCT - [facility] 10.8 (A) 10/16/2005 03:00 PM HEMOGLOBIN A1C - [facility] 5.2 11/08/2022 09:17 AM HEMOGLOBIN A1C - [facility] 5.5 11/07/2022 09:40 AM HEMOGLOBIN A1C - [facility] 5.7 (H) 01/18/2021 12:06 PM HEMOGLOBIN A1C - [facility] 5.5 03/10/2020 10:52 AM HEMOGLOBIN A1C - [facility] 5.7 06/01/2013 05:13 PM Insulin Resistance: Yes PCOS: Yes GERD: Yes: Requiring medications: Yes History of nephrolithiasis: No. Osteoarthritis: No Anxiety/Depression: Yes-- seeing psychology; sees psychiatry Patient Active Problem List Diagnosis Code ADVANCE DIRECTIVE INFORMATION Depression F32.A Body mass index (BMI) of 50.0 to 59.9 in adult ([facility]) Z68.43 Bipolar 2 disorder, major depressive episode ([facility]) F31.81 Hyperinsulinemia E16.1 PCOS (polycystic ovarian syndrome) E28.2 Food insecurity Z59.41 Past Surgical History: Procedure Laterality Date COLONOSCOPY, DIAGNOSTIC (RECTUM) N/A 08/07/2021 [facility] colonoscopy, Normal scope / biopsies normal EGD, FLEXIBLE, DIAGNOSTIC N/A 08/07/2021 [facility], EGD, Normal scope / biopsies normal NONE Review of patient's allergies indicates: Allergen Reactions Lexapro [Escitalopram] Other (Please comment) Pt had lightheadedness. Current Outpatient Medications Medication Sig Dispense Refill [...] BY MOUTH ONCE DAILY IN THE MORNING Pmrhakfx-Auyzwyiba-YM 3.5-80623-3 Otic Solution Administer 4 Drops into ears in the morning and4 Drops at noon and 4 Drops before bedtime. To affected ear, for 10 days.. 10 mL 0 No current facility-administered medications for this visit. Family History Problem Relation Age of Onset Mental Disorder Mother "Recovering Addict" bipolar Pt reports BPD/Panic with Agoraphobia Blood Disorder Father Van- Williabrons disorder "Recovering Alcoholic". Ear Problems Father pe tubes Mental Disorder Grandmother (Maternal) depression-- her mother- dep Hypertension Grandfather (Maternal) Cancer Grandmother (Paternal) Genitourinary Disorder Grandfather (Paternal) stones Stroke Grandfather (Paternal) Heart Disorder Grandfather (Paternal) triple bypass Asthma Aunt (Unspecified) pat Mental Disorder Aunt (Unspecified) pat-depression Social History: Alcohol: Infrequent Tobacco Use: Yes, smokes 1 pack per day--vapes Drug Use: Yes - THC-- daily before bed; recreational Marital status: single Occupation: just got a job Review of Systems: Review of Systems Gastrointestinal: Positive for abdominal pain and nausea. Negative for constipation and diarrhea. Psychiatric/Behavioral: Negative for dysphoric mood. The patient is not nervous/anxious. Sleep Apnea STOP-BANG: Does patient snore loudly (louder than talking or loud enough to be heard)?Yes, greater than or equal to 3 times per week Does patient feel tired, fatigued or sleepy during daytime? yes Have others observed patient stopping breathing during sleep? Yes, greater than or equal to 3 timesper week Does patient have/is being treated for high blood pressure? no BMI greater than 35 kg/m2? yes; There is no height or weight on file to calculate BMI. Patient 50 years or older? no; 18 year old Neck circumference greater than 16 inches? Unknown, this was a Telemed Visit. Gender: female Score: greater than or equal to 3 refer to sleep medicine Menstrual Cycle: No Control: was on nexplanon but got it out this year Physical Examination: There were no vitals taken for this visit. Physical Exam Constitutional: Appearance: Normal appearance. HENT: Head: Normocephalic and atraumatic. Pulmonary: Effort: Pulmonary effort is normal. No respiratory distress. Neurological: Mental Status: She is alert and oriented to person, place, and time. Psychiatric: Mood and Affect: Mood normal. Assessment and Recommendation: Abnormal weight gain There is no height or weight on file to calculate BMI. Morbid obesity . Discussed weight management options and would like to proceed with surgical weight management. Barriers are consistency. Motivators are feeling better, avoiding/reducing comorbid conditions. Patient goals were discussed in detail at visit. GOALS -work to decrease portions -work to have 3 small meals per day instead of 1 or 2 larger meals -increase trulicity to 1.5mg weekly-- watch for worsening GI side effects -enroll in surgery program Diagnoses and all orders for this visit: Morbid obesity due to excess calories (HCC) Possibility of bariatric surgery - pt is interested in bariatric surgery - pt qualifies for bariatric surgery based on BMI >40 or BMI >35 with obesity related comorbidity (There is no height or weight on file to calculate BMI.) -pre bariatric surgery program reviewed and packet given to patient - pt will need to call insurance company to see if bariatric surgery is a covered benefit -Enroll in bariatric surgery program. -Discussed details of program with patient in clinic today, including (but not limited to) program fee; attending 2 support groups and 3 educational classes; Behavioral Medicine evaluation; Home Manager evaluation; medical evaluation; monthly visits; and 10% weight loss goal. - Discussed importance of eating 3 regular meals/day with a focus on protein. Reviewed healthy snacks and provided list. Educated about MyPlate and portion sizes. Pt is to work on these items betweennow and next visit. Given the patient's age, degree of obesity and multiple medical problems outlined above, I do believe that bariatric surgery may prove beneficial. Discussed with patient the risks and benefits of rygb,vsg. The patient is interested in bariatric surgery and will begin our presurgical process. Snoring - SLEEP MEDICINE REFERRAL OP - discussed with pt that sleep med referral is required due to STOPBANG score >3 as part of presurgical workup - sleep medicine referral placed - discussed the risk of undiagnosed & untreated sleep apnea, which include but are not limited to, cardio-pulmonary disease, arrhythmias, HTN, & difficulty with weight loss Abnormal weight gain Hyperinsulinemia Increase Trulicity - Trulicity 1.5 MG/0.5ML Subcutaneous Solution Pen-injector (Dulaglutide); Inject 1.5 mg under the skin once a week. Bipolar 2 disorder, major depressive episode (HCC) Continue current medications Continue with psychology and psychiatry PCOS (polycystic ovarian syndrome) - Trulicity 1.5 MG/0.5ML Subcutaneous Solution Pen-injector (Dulaglutide); Inject 1.5 mg under the skin once a week. Patients with PCOS/hyperinsulinemia tend to respond well to a low-carb diet. Limit processed carbs/sugary foods & drinks; focus on meals consisting primarily of protein, vegetables, fruit, healthy fats, & whole grains I spent a total of 44 minutes on the date of service in preparation, delivery, and documentation ofthe care provided to Tino York excluding any time spent in the performance of separately billed services. More than 50% of my time spent with patient providing counseling about the benefits of weight loss, about the patient's nutritional status, detailed explanations about calorie count, typesof nutrients to choose, and composition of the meals. Reviewed and discussed weight, weight trends and pertinent labs and test results. Motivational interview provided in order to prepare the patientto achieve future goals. The patient agreed to try all the plan discussed and return in one month. Patient was instructed to message or call in the meantime with any further concerns or questions. Carly Campbell PA-C, [facility] Nutrition and Weight Management [facility] ([facility]) documented in this encounter Plan of Treatment Upcoming Encounters Date Type Specialty Care Team Description 06/10/2023 Telemedicine Psychology Sukhwinder Goetz LCSW [address] [place] [address] 06/12/2023 Telemedicine Psychology Sukhwinder Goetz LCSW [address] [place] [address] 06/12/2023 Telemedicine Psychiatry Barbara Szymanski CRNP [address] [place] [address] 06/14/2023 Telemedicine Psychology Sukhwinder Goetz, MACHINE CARTON MARKER [address] [place] [address] 06/28/2023 Telemedicine Psychology Jann Storm, GEOGRAPHIC INFORMATION SYSTEMS ANALYST [address] [place] [address] Scheduled Referrals Name Type Priority Associated Diagnoses Orde r Schedule SLEEP MEDICINE REFERRAL OP Referral Within 10 days (routine) Snoring Ordered: 06/07/2023 Health Maintenance Due Date Last Done Comments [...] obesity due to excess calories (HCC)- Primary Snoring Other dyspnea and respiratory abnormality Abnormal weight gain Hyperinsulinemia Other specified hypoglycemia Bipolar 2 disorder, major depressive episode (HCC) Other bipolar disorders PCOS (polycystic ovarian syndrome) Polycystic ovaries documented in this encounter Care Teams Peoplesoft Hcm Consultant Relationship Specialty Start Date End Date Tomasa Saldaña MD [address], [place] [id number] PCP - General Internal Medicine 11/07/22 documented as of this encounter
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
--- OUTSIDE RECORDS SUMMARY | 2023-11-07 23:26 | External Medical Summary | Summary of Care ---
Author Name Unknown Organization [facility] Address [address] [place] [address] Phone [phone] Care Team Providers Care Web Press Operator Name Role Phone Tomasa Saldaña MD Primary Care Provider [phone] Reason for Visit * Reason Comments Ear Pain Pt states 2 months a go she went swimming and her R ear got clogged, states it has evolved into pain, pus like discharge and swelling. Pt states it has radiated to L ear Encounter Details Date Type Department Care Team Description 05/13/2023 Office Visit Family Practice [facility] [address] [place] [address] Brian Hatfield DO [address] [place] [address] Other infective acute otitis externa of left ear*; Impacted cerumen of right ear; Tobacco use; PCOS (polycystic ovarian syndrome); Need for pneumococcal vaccination Allergies Active Allergy Reactions Severity Noted Date Comments Escitalopram Other (Please comment) Medium 01/26/2021 Pt had lightheadedness. documented as of this encounter (statuses as of 05/26/2023) Medications Medication Sig Dispensed Refills Start Date End Date Status metFORMIN HCl ER 500 MG Oral Tablet Extended Release 24 Hour (Glucophage XR)Indications:Cl ass 3 severe obesity without serious comorbidity with [...] DAILY IN THE MORNING 0 03/28/2023 Active Neomycin-Polymyxi n-HC 3.5-88463-5 Otic SolutionIndicatio ns:Other infective acute otitis externa of left ear Administer 4 Drops into ears in the morning and 4 Drops at noon and 4 Drops before bedtime. To affected ear, for 10 days.. 10 mL 0 05/13/2023 Active clonazePAM 0.5 MG Oral Tablet Take 1 Tablet by mouth 2 times a day as needed for Anxiety. 0 3 Discontinued lamoTRIgine 100 MG Oral Tablet (LaMICtal) Take 1 Tablet by mouth in the morning. 0 02/26/2023 3 Discontinued Cephalexin 500 MG Oral CapsuleIndication s:Other infective acute otitis externa of left ear Take 1 Capsule by mouth in the morning and 1 Capsule before bedtime. Do all this for 10 days. 20 Capsule 0 05/13/2023 3 documented as of this encounter (statuses as of 05/26/2023) Active Problems Problem Noted Date Food insecurity [...] as of this encounter (statuses as of 05/26/2023) Resolved Problems Problem Noted Date Resolved Date Constipation 11/02/2022 12/07/2022 Prediabetes 03/21/2021 11/22/2022 Overview: Per Prediabetes protocol Obesity 06/09/2014 10/26/2022 documented as of this encounter (statuses as of 05/26/2023) Immunizations Name Administration Dates Next Due COVID-19 [...] PPD 03/29/2023 Pneumococcal Conjugate Vacci ne, 20-valent ([id number]) 05/13/2023 Pneumococcal Conjugate Vacci ne, 7 Valent [...] Sign Reading Time Taken Comments Blood Pressure 122/78 05/13/2023 10:26 AM EDT Pulse 88 05/13/2023 10:26 AM EDT Temperature 36.9 C (98.5 F) 05/13/2023 10:26 AM E DT Respiratory Rate 18 05/13/2023 10:26 AM EDT Oxygen Saturation - - Inhaled Oxygen Concentration - - Weight 156.9 kg (346 lb) 05/13/2023 10:26 AM EDT Height 162.6 cm (5' 4") 05/13/2023 10:26 AM EDT Body Mass Index 59.39 05/13/2023 10:26 AM EDT documented in this encounter Patient Instructions * Patient Instructions* Brian Hatfield DO - 05/13/2023 10:45 AM EDT ~~PATIENT INSTRUCTIONS FOR PNEUMOCOCCAL VACCINE~~ Possible side effects of pneumococcal vaccine, (pneumonia shot), are usually mild and can include: 1. Soreness or redness at injection site 2. Low grade fever 3. Body aches You may use Tylenol/Acetaminophen as needed for these symptoms. LET YOUR DOCTOR KNOW IMMEDIATELY IF YOU HAVE DIFFICULTY BREATHING OR SWALLOWING, EXPERIENCE ITCHINGOF FEET OR HANDS, HAVE SWELLING OF EYES, FACE OR INSIDE OF NOSE. documented in this encounter Progress Notes * Brian Hatfield DO - 05/13/2023 10:44 AM EDT Images from the original note were not included. History of Present Illness Tino York is a 18 year old female that presents for Ear Pain (Pt states 2 months ago she went swimming and her R ear got clogged, states it has evolved into pain, pus like discharge and swelling. Pt states it has radiated to L ear ) Patient is a 18-year-old female with a history of PCOS. Patient complains of right ear pain and clogged feeling x2 months.. Patient complains of left ear pain with purulent discharge..Patient denies fatigue fever chills or sweats. Patient denies nasal congestion or sore throat. Patient denies coughor sputum. Patient denies chest pain shortness breath palpitations or edema. Patient denies abdominal pain nausea vomiting diarrhea constipation. Patient denies urinary frequency dysuria urgency or hematuria. Patient denies neck or back pain, joint pain or swelling. Patient denies headache dizziness weakness or numbness. Patient denies skin rash or lesions. Review systems otherwise negative Physical Exam Vitals: 05/13/23 1026 Temp: 36.9 C (98.5 F) Pulse: 88 Resp: 18 BP: 122/78 BMI: 59.36 BP Readings from Last 3 Encounters: 05/13/23 122/78 03/26/23 132/78 02/18/23 130/76 Wt Readings from Last 3 Encounters: 05/13/23 (!) 156.9 kg (346 lb) 03/26/23 (!) 160.1 kg (353 lb) 02/18/23 (!) 156.6 kg (345 lb 3.2 oz) (>99 %, Z= 3.07)* * Growth percentiles are based on CDC (Girls, 2-20 Years) data. BMI Readings from Last 3 Encounters: 05/13/23 59.39 kg/m 03/26/23 60.59 kg/m 12/12/22 55.10 kg/m (>99 %, Z= 3.68)* * Growth percentiles are based on CDC (Girls, 2-20 Years) data. General: alert, healthy and no distress Head: Normocephalic, No masses, lesions, tenderness or abnormalities Eye Exam: PERRLA, extraocular movements intact, conjunctiva are pink and non- injected, sclera clear Ears: External ears normal, cerumen impaction right ear, left ear canal inflamed with purulent discharge, TMs normal bilateral Nose: no mucosal erythema, no mucosal edema, no purulent discharge Oropharynx: no exudate, no erythema, lips, buccal mucosa, and tongue normal and mucous membranes are moist Neck: supple, no adenopathy, no bruits, thyroid normal size, non-tender, without nodularity Lymph: no palpable lymphadenopathy Heart: regular rate & rhythm, no murmur and no gallops Lungs: chest symmetric with normal AP diameter, no chest deformities noted, no chest wall tenderness, lungs clear to auscultation Pulses: carotid=2/4 w/o bruits Abdomen: abdomen soft, non-tender, normal bowel sounds and no masses or organomegaly Back: back symmetric, no curvature, no costovertebral angle tenderness, range of motion is normal Extremities: less than 2 second capillary refill, no joint deformities, effusion, or inflammation Neuro Exam: alert & oriented x 3 with fluent speech, no focal motor/sensory deficits, gait normal, reflexes normal and symmetric Skin: skin color, texture, turgor are normal, no rashes or significant lesions I have reviewed the following results: None Assessment and Plan Other infective acute otitis externa of left ear - Cephalexin 500 MG Oral Capsule; Take 1 Capsule by mouth in the morning and 1 Capsule before bedtime. Do all this for 10 days. - Jkyzpyvf-Znbyfbiut-EM 3.5-02856-1 Otic Solution; Administer 4 Drops into ears in the morning and4 Drops at noon and 4 Drops before bedtime. To affected ear, for 10 days.. Impacted cerumen of right ear - REMOVAL IMPACTED CERUMEN IRRIGATION/LAVAGE, UNILAT Tobacco use Advise stop smoking Refer smoking cessation support program PCOS (polycystic ovarian syndrome) Stable Follow with gynecology Need for pneumococcal vaccination - PNEUMOCOCCAL VACC, PCV20, IM ([id number]) Wrap-Up Time: I spent a total of 20-29 minutes (exact time 20 mins) on the date of service in preparation, delivery, and documentation of the care provided to Tino York excluding any time spent in the performance of separately billed services. documented in this encounter Nursing Notes * Yvrose Daugherty LPN - 05/13/2023 10:26 AM EDT The patient has been properly identified by confirmation of name and date of . Chief Complaint Patient presents with Ear Pain Pt states 2 months ago she went swimming and her R ear got clogged, states it has evolved into pain, pus like discharge and swelling. Pt states it has radiated to L ear documented in this encounter Plan of Treatment Upcoming Encounters Date Type Specialty Care Team Description 05/31/2023 Telemedicine Psychology Madonna Heller, LATEX DIPPER [address] [facility] [address] 06/07/2023 Telemedicine Gastroenterology Carly Campbell PA-C [address] [facility] [place] [address] Scheduled Orders Name Type Priority Associated Diagnoses Orde r Schedule REMOVAL IMPACTED CERUMEN IRRIGATION/LAVAGE, UNILAT Procedures Routine Impacted cerumen of right ear Ordered: 05/13/2023 Health Maintenance Due Date Last Done Comments [...] as of this encounter Visit Diagnoses Diagnosis Other infective acute otitis externa of left ear- Primary Impacted cerumen of right ear Impacted cerumen Tobacco use Tobacco use disorder PCOS (polycystic ovarian syndrome) Polycystic ovaries Need for pneumococcal vaccination Need for prophylactic vaccination against streptococcus pneumoniae (pneumococcus) documented in this encounter Care Teams Web Press Operator Relationship Specialty Start Date End Date Tomasa Saldaña MD [address] [place] [address] PCP - General Internal Medicine 11/07/22 documented as of this encounter
--- OUTSIDE RECORDS SUMMARY | 2023-11-07 23:26 | External Medical Summary | Summary of Care ---
Author Name Unknown Organization [facility] Address [address] [place] [address] Phone [phone] Care Team Providers Care Patient Service Technician Pst Name Role Phone Tomasa Saldaña MD Primary Care Provider [phone] Reason for Visit * Reason Onset Date Comments Appointment 06/10/2023 Encounter Details Date Type Department Care Team Description 06/10/2023 Telephone Nutrition & Weight Management, [facility] [address] [place] [address] Carly Campbell PA-C [address] [place] [address] Appointment Allergies Active Allergy Reactions Severity Noted Date Comments Escitalopram Other (Please comment) Medium 01/26/2021 Pt had lightheadedness. documented as of this encounter (statuses as of 06/10/2023) Medications Medication Sig Dispensed Refills Start Date [...] DAILY IN THE MORNING 0 03/28/2023 Active Fhciucuv-Qbeoalepq-P C 3.5-61792-8 Otic SolutionIndications: Other infective acute otitis externa [...] as of this encounter (statuses as of 06/10/2023) Active Problems Problem Noted Date Food insecurity [...] as of this encounter (statuses as of 06/10/2023) Resolved Problems Problem Noted Date Resolved Date Constipation 11/02/2022 12/07/2022 Prediabetes 03/21/2021 11/22/2022 Overview: Per Prediabetes protocol Obesity 06/09/2014 10/26/2022 documented as of this encounter (statuses as of 06/10/2023) Immunizations Name Administration Dates Next Due COVID-19 mRNA, LNP-s, No Pre serve, 2-Dose Series (Moderna) 08/28/2021,07/15/2021 DTaP - Dipth/Tet/Acell Pertussis 004,2003,2003,05/11 DTaP HIB - Dipth/Tet/Acell Pert/HIB 04/20/2008 HIB 3 dose (Pedvax) 03/29/2004,2003,2002 HPV Vaccine, 4-Valent 06/09/2014 HPV Vaccine, 9-Valent 01/18/2021 Haemophilus B (HIB) 03/29/2004,2003,2002 IPV - Polio Virus Vaccine (Inact) 2007,08/28/2004,2003,05/11 MMR - Measles/Mumps/Rubella Vaccine 04/20/2008,0 03/29/2004 Meningococcal Conjugate Vacc ine (Menactra/Menveo) 06/09/2014 Meningococcal MCV4O Conjugat e Vaccine (Menveo) 01/18/2021 Meningococcal MCV4P Conjugat e Vaccine (Menactra) 01/18/2021,06/09/2014 PPD 03/29/2023,10/16/2005 Pneumococcal Conjugate Vacci ne, 20-valent ([id number]) 05/13/2023 Pneumococcal Conjugate Vacci ne, 7 Valent [...] Miscellaneous Notes * Telephone Encounter - TINO Moore - 06/10/2023 12:04 PM EDT 06/26 nutrition class appts tone'd Sleep med tone'd 09/30 * Telephone Encounter - TINO Moore - 06/10/2023 9:58 AM EDT Per 06/07 video visit with Adrian: 1 month nutrition class Schedule with sleep medicine-- eval sleep apnea Phone # not accepting calls, myG sent. documented in this encounter Plan of Treatment Upcoming Encounters Date Type Specialty Care Team Description 06/10/2023 Telemedicine Psychology Sukhwinder Goetz LCSW [address] [place] [address] 06/12/2023 Telemedicine Psychology Sukhwinder Goetz LCSW [address] [facility] [place] [address] 06/12/2023 Telemedicine Psychiatry Barbara Szymanski, NAHUM [address] [facility] [place] [id number] 06/14/2023 Telemedicine Psychology Sukhwinder Goetz, MANAGER INFORMATION [address] [facility], [place] [id number] 06/26/2023 Office Visit Gastroenterology Rina Li PA-C [address] [place] [address] 06/26/2023 Nurse Only Gastroenterology [place], Nutrition Ed Class 1 Le[address] [place] [address] 06/28/2023 Telemedicine Psychology Jann Storm, PHYSICAL THERAPIST AIDE [address] [facility] [place] [address] 09/30/2023 Telemedicine Sleep Disorders Haleigh Rich, [address] [facility] [place] [address] Health Maintenance Due Date Last Done Comments [...] filedocumented as of this encounter Care Teams Patient Service Technician Pst Relationship Specialty Start Date End Date Tomasa Saldaña MD [address] [place] [address] PCP - General Internal Medicine 11/07/22 documented as of this encounter
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
--- OUTSIDE RECORDS SUMMARY | 2023-11-07 23:26 | External Medical Summary | Summary of Care ---
Author Name Unknown Organization [facility] Address [address] [place] [address] Phone [phone] Care Team Providers Care Yardmaster Name Role Phone Tomasa Saldaña MD Primary Care Provider [phone] Reason for Visit * Reason Onset Date Comments Appointment 06/10/2023 Encounter Details Date Type Department Care Team Description 06/10/2023 Telephone Nutrition & Weight Management, [facility] [address] [place] [address] Carly Campbell PA-C [address] [place] [address] Appointment Allergies Active Allergy Reactions Severity Noted [...] DAILY IN THE MORNING 0 03/28/2023 Active Zybnobwv-Opidemiiy-A C 3.5-65198-4 Otic SolutionIndications: Other infective acute otitis externa [...] PPD 03/29/2023,10/16/2005 Pneumococcal Conjugate Vacci ne, 20-valent ([id number]) 05/13/2023 Pneumococcal Conjugate Vacci ne, 7 Valent [...] Telemedicine Psychology Sukhwinder Goetz LCSW [address] [place] [address] 06/12/2023 Telemedicine Psychology Sukhwinder Goetz LCSW [address] [place] [facility] [address] 06/12/2023 Telemedicine Psychiatry Barbara Szymanski, NAHUM [address] [facility] [place] [id number] 06/14/2023 Telemedicine Psychology Sukhwinder Goetz, LOGISTICS LOSS PREVENTION MANAGER [address] [facility], [place] [id number] 06/26/2023 Office Visit Gastroenterology Rina Li PA-C [address] [place] [address] 06/26/2023 Nurse Only Gastroenterology [place], Nutrition Ed Class 1 Le[address]ardo [address] [place] [address] 06/28/2023 Telemedicine Psychology Jann Storm, AMUSEMENT PARK RIDE MECHANIC [address] [place] [facility] [address] 09/30/2023 Telemedicine Sleep Disorders Haleigh Rich, [address] [facility] [place] [address] Health Maintenance Due Date Last Done Comments [...] filedocumented as of this encounter Care Teams Yardmaster Relationship Specialty Start Date End Date Tomasa Saldaña MD [address] [place] [address] PCP - General Internal Medicine 11/07/22 documented as of this encounter
--- NOTE | 2023-11-08 01:08 | Emergency Department Note ---
ED Visit Note Patient signed out to me at change of shift from Dr. Ortiz. Patient medically cleared prior to signout, please see his notes for additional adair luation. Patient awaiting evaluation by [facility] S. for inpatient mental health treatment in their unit. Patient excepted to [address] 201 signed by me. .
[2023-11-08] MEDS ORDERED: MAGNESIUM HYDROXIDE SUSP 30 ML UDC PO PRN (01:35)
[2023-11-08] MEDS ORDERED: hydrOXYzine HCl 25 MG TAB PO PRN (01:35)
[2023-11-08] MEDS ORDERED: ALUMINUM/MAGNESIUM SUSP 30 ML UDC PO PRN (01:35)
[2023-11-08] MEDS ORDERED: BISMUTH SUBSALICYLATE LIQD 236 ML PO PRN (01:35)
[2023-11-08] MEDS ORDERED: SODIUM CHLORIDE 0.65% NA SOLN 45 ML (OCEAN) PRN (01:35)
[2023-11-08] MEDS ORDERED: ACETAMINOPHEN 325 MG TAB PO PRN (01:35)
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
[2023-11-08] MEDS: FLUoxetine HCL 10 MG CAP PO SCH (11:03)
[2023-11-08] MEDS: metFORMIN HCL 500 MG TAB PO SCH (17:43)
[2023-11-08] MEDS: hydrOXYzine HCl 25 MG TAB PO PRN (17:48)
[2023-11-08] MEDS: NICOTINE POLACRILEX 2 MG GUM MT PRN (20:06)
[2023-11-08] MEDS: lamoTRIgine 25 MG TAB PO SCH (21:10)
[2023-11-08] MEDS: PRAZOSIN HCL 1 MG CAP PO SCH (21:11)
[2023-11-08] MEDS ORDERED: traZODone HCL 50 MG TAB PO SCH (22:00)
[2023-11-09] MEDS: FLUoxetine HCL 10 MG CAP PO SCH (09:54)
--- NOTE | 2023-11-09 11:12 | Psychiatric Progress Note ---
Date of Service November 09, 2023 Impression / Recommendations Impression 18 yo female with complex history, hx of overwhelm and SIB related to adult stressors (health, work, relationship), presents with recent reported OD attempt on Buspar, recent inpatient stay Aug 2023. 11/09/2023: Pt who appears to have become overwhelmed about housing uncertainty just as partner was informing her that an apartment had been arranged, the getting in an argument and expressing suicidal thoughts. Today had a phone conversation with the partner that she says went well. However, pt emphasizes (volunteers) that she's having vague, passive suicidal thoughts. Complains of "jumbled thoughts", inability to focus on any one thing. Says she's "supposed to be taking" buspirone but "forgot it starting ". Discussed a trial of an antipsychotic mood stabilizer. Pt has had a past trial of cariprazine, about which she can't tell me much, but doesn't appear to have had a trial of aripiprazole. Risks and benefits of, and alternatives to, the use of aripiprazole (Abilify) for mood symptoms were reviewed. This discussion included but was not limited to issues known potentially to be associated with use of such medication, especially at high doses or with longer use, including sedation, weight gain, problems with glucose metabolism including Type II diabetes, problems with lipid metabolism, cardiac conduction problems, or rarely involuntary movements, parkinsonian symptoms, or even acute dystonia or life- threatening Neuroleptic Malignant Syndrome. Discussed the need for periodic monitoring of fasting glucose or Hemoglobin A1c and fasting lipid panel, which had previously been done so were not repeated for baseline monitoring. The patient agreed to start a trial of aripiprazole. (1) Bipolar 2 disorder: (2) Borderline personality disorder: (3) Post traumatic stress disorder (PTSD): Plan 11/09/2023: * start aripiprazole 5 mg daily * resume buspirone 15 mg BID - prior to admission medication * continue fluoxetine 30 mg daily - increased 10/09/2023 from prior to admission dose of 20 mg * continue lamotrigine 150 mg QHS - increased 10/09/2023 from prior to admission dose of 100 mg * continue prazosin 1 mg QHS - prior to admission medication * continue trazodone 50 mg QHS - prior to admission medication 11/08/2023: The patient was admitted to the [facility] ([facility] health unit) on q15 min checks (behavioral with suicide precautions) for safety. The patient will participate in group, recreational, and milieu therapies and will be offered additional individual and family sessions as clinically appropriate. Risks/benefits/alternatives reviewed re: current medications, including but not limited to FDA warnings and risk of rash. She agreed to an increase in Prozac to 30 mg and Lamictal 150 mg hs. Inventory Assets Strengths: help seeking, better med compliance, working at [employer] Needs: improve coping, outpatient therapy Suicide Risk Level Suicide Risk Level: High-Moderate (q15 min suicide checks) Risk Factors Assessment : Yes Do You Have Access To A Gun?: No Health Problems: Yes Mental Health Diagnoses: Yes Previous Attempt: Yes Previous Psychiatric Hospitalization: Yes Protective Factors Assessment Employed: Yes ([employer]) Stable Relationships: Yes Good Rapport with Provider: Yes Interval History Identifying Information ASA REAL is a 18-year-old F who currently lives with a friend in [place], has a history of SI/SIB and previous admissions to , and was admitted on 11/08/23 00:32 on a 201 voluntary commitment for SI with plan. Chief Complaint "I can't learn how to forgive". Review of Systems Sleep Information Total Hours of Sleep: 6.75 Sleep Comments: Pt admitted to unit at 0100 Meal Information Percent Meal Consumed - Breakfast: 0 Percent Meal Consumed - Lunch: 100 Percent Meal Consumed - Dinner: 100 Subjective Subjective The patient was seen and assessed and interval progress reviewed in a multidisciplinary team meeting with the treatment team. For details, see the "Impression" section. Overall I spent a total of 52 minutes for this inpatient follow-up including review of chart records, review of test results, direct evaluation of the patient [id number], counseling the patient, [reconciling and ordering medication, ]medication education with the patient, risk assessment, discussion during interdisciplinary treatment rounds, and documentation in the electronic health record. Physical Exam Psychiatric Orientation: alert, oriented to person, oriented to place and oriented to time Apperance: appropriately dressed and appropriately groomed Eye Contact: + poor eye contact Motor Behavior: no abnormal motor movements Speech: normal rate/rhythm/volume of speech Affect: + depressed affect Mood: + depressed mood Thought Process: goal directed thought process Thought Content: reality based without delusions Suicidal Thoughts: denies suicidal plan and denies suicidal intent; + reports suicidal thoughts Homicidal Thoughts: denies homicidal thoughts Hallucinations: no auditory hallucinations and no visual hallucinations Cognition: attention grossly intact and language grossly intact Estimated Intelligence: consistent with education level Insight: + limited insight Judgment: + limited judgement Vital Signs (Past 24 Hours) Last Vital Signs Temp 36.6 C 11/09/23 06:36 Pulse 71 11/09/23 06:37 Resp 16 11/09/23 06:36 BP 118/77 11/09/23 06:37 Pulse Ox 99 11/08/23 01:53 O2 Del Method Room Air 11/08/23 01:53 Results & Data ([facility]) Current Inpatient Medications Current Inpatient Medications: Current Inpatient Medications Acetaminophen (Acetaminophen 325 Mg Tab) 650 mg PO Q4H PRN PRN Reason: Headache or Minor Fever Stop: 12/08/23 01:34 Al Hydrox/Mg Hydrox/Simethicone (Aluminum/Magnesium Susp 30 Ml Udc) 30 ml PO Q4H PRN PRN Reason: GI Upset Stop: 12/08/23 01:34 Bismuth Subsalicylate (Bismuth Subsalicylate Liqd 236 Ml) 15 ml PO PRN PRN PRN Reason: Loose Stool Stop: 12/08/23 01:34 Fluoxetine HCl (Fluoxetine Hcl 10 Mg Cap) 30 mg PO QAM [facility] Stop: 12/08/23 10:14 Last Admin: 11/09/23 09:54 Dose: 30 mg Hydroxyzine HCl (Hydroxyzine Hcl 25 Mg Tab) 50 mg PO HSZ PRN PRN Reason: Insomnia Stop: 12/08/23 01:34 Hydroxyzine HCl (Hydroxyzine Hcl 25 Mg Tab) 25 mg PO Q4H PRN PRN Reason: Anxiety Stop: 12/08/23 01:34 Last Admin: 11/08/23 17:48 Dose: 25 mg Lamotrigine (Lamotrigine 25 Mg Tab) 150 mg PO HS [facility]; Protocol Stop: 12/08/23 21:59 Last Admin: 11/08/23 21:10 Dose: 150 mg Magnesium Hydroxide (Magnesium Hydroxide Susp 30 Ml Udc) 30 ml PO DAILY PRN PRN Reason: Constipation Stop: 12/08/23 01:34 Metformin HCl (Metformin Hcl 500 Mg Tab) 500 mg PO DAILYBD [facility] Stop: 12/08/23 17:14 Last Admin: 11/08/23 17:43 Dose: 500 mg Nicotine Polacrilex (Nicotine Polacrilex 2 Mg Gum) 2 piece MT PRN PRN PRN Reason: Nicotine Withdrawal Symptoms Stop: 12/08/23 01:34 Last Admin: 11/08/23 20:06 Dose: 2 piece Prazosin HCl (Prazosin Hcl 1 Mg Cap) 1 mg PO HS [facility] Stop: 12/08/23 21:59 Last Admin: 11/08/23 21:11 Dose: 1 mg Sodium Chloride (Sodium Chloride 0.65% Na Soln 45 Ml ([place])) 1 - 2 sprays NA PRN PRN PRN Reason: Nasal Dryness/Congestion Stop: 12/08/23 01:34 Trazodone HCl (Trazodone Hcl 50 Mg Tab) 50 mg PO HS [facility] Stop: 12/08/23 21:59 Last Admin: 11/08/23 21:12 Dose: 50 mg Mental Health & Subst Abuse Tx Psychiatrist Name of Psychiatrist: Homero Roche Psychiatrist's Date Of Appointment With Psychiatric Provider: 11/24/2023 Psychiatric Appointment Comment: [address] [facility] [id number] Therapist Name of Therapist: [facility] The[facility]ist's Date of Therapist Appointment: 11/26/23 Therapy Appointment Comment: [address] [facility] [address] Site Superintendent Name of Site Superintendent: None Post Discharge Appointments Primary Care Physician Name Of Family Doctor/PCP: Akua Saldaña Primary Care Provider Appointment Comment: Please follow up with PCP as needed. Specialist Name of Specialist: Henok Mota Phone Number for Specialist: [phone] Date of Appointment with Specialist: 07/29/24 Time of Appointment with Specialist: 9:30 AM Specialty Appointment Comment: [address] [place] [address]
[2023-11-09] MEDS: NICOTINE POLACRILEX 2 MG GUM MT PRN (13:44)
[2023-11-09] MEDS: busPIRone 7.5 MG TAB PO SCH ×2 (13:46→21:29)
[2023-11-09] MEDS: ARIPiprazole 5 MG TAB PO SCH (13:47)
[2023-11-09] MEDS: metFORMIN HCL 500 MG TAB PO SCH (18:37)
[2023-11-09] MEDS: traZODone HCL 100 MG TAB PO SCH (21:28)
[2023-11-09] MEDS: PRAZOSIN HCL 1 MG CAP PO SCH (21:29)
[2023-11-09] MEDS: lamoTRIgine 25 MG TAB PO SCH (21:29)
[2023-11-10] MEDS: FLUoxetine HCL 10 MG CAP PO SCH (09:33)
[2023-11-10] MEDS: ARIPiprazole 5 MG TAB PO SCH (09:34)
[2023-11-10] MEDS: busPIRone 7.5 MG TAB PO SCH ×2 (09:35→20:14)
[2023-11-10] MEDS: NICOTINE POLACRILEX 2 MG GUM MT PRN (10:33)
[2023-11-10] MEDS: hydrOXYzine HCl 25 MG TAB PO PRN (10:57)
--- NOTE | 2023-11-10 11:20 | Psychiatric Progress Note ---
Date of Service November 10, 2023 Impression / Recommendations Impression 18 yo female with complex history, hx of overwhelm and SIB related to adult stressors (health, work, relationship), presents with recent reported OD attempt on Buspar, recent inpatient stay Aug 2023. 11/10/2023: Reports significant improvement in mood. Says she hasn't had any suicidal thoughts since yesterday afternoon. Asks how much longer I think she needs to be here and about scheduling a planning meeting. In particular, asks if such a meeting could include both her roommate and her friend. I clarified that the criterion for discharge is safety and that as soon as it's safe for her to leave we should plan for discharge and that it would be appropriate to schedule a meeting as soon as practical. Isn't sure if she's seen any effect, positive, or negative, attributable to aripiprazole, yet asks about DWYER form. Clarified that this should only be considered once tolerability has been established and when benefit is seen, and that its role is for people who can't use oral medication consistently. Voices concern about her job at [employer] since she's here. I talked with her about FMLA. 11/09/2023: Pt who appears to have become overwhelmed about housing uncertainty just as partner was informing her that an apartment had been arranged, the getting in an argument and expressing suicidal thoughts. Today had a phone conversation with the partner that she says went well. However, pt emphasizes (volunteers) that she's having vague, passive suicidal thoughts. Complains of "jumbled thoughts", inability to focus on any one thing. Says she's "supposed to be taking" buspirone but "forgot it starting ". Discussed a trial of an antipsychotic mood stabilizer. Pt has had a past trial of cariprazine, about which she can't tell me much, but doesn't appear to have had a trial of aripiprazole. Risks and benefits of, and alternatives to, the use of aripiprazole (Abilify) for mood symptoms were reviewed. This discussion included but was not limited to issues known potentially to be associated with use of such medication, especially at high doses or with longer use, including sedation, weight gain, problems with glucose metabolism including Type II diabetes, problems with lipid metabolism, cardiac conduction problems, or rarely involuntary movements, parkinsonian symptoms, or even acute dystonia or life- threatening Neuroleptic Malignant Syndrome. Discussed the need for periodic monitoring of fasting glucose or Hemoglobin A1c and fasting lipid panel, which had previously been done so were not repeated for baseline monitoring. The patient agreed to start a trial of aripiprazole. (1) Bipolar 2 disorder: (2) Borderline personality disorder: (3) Post traumatic stress disorder (PTSD): Plan 11/10/2023: * continue aripiprazole 5 mg daily - started 11/09/2023 * resume buspirone 15 mg BID - prior to admission medication * continue fluoxetine 30 mg daily - increased 10/09/2023 from prior to admission dose of 20 mg * continue lamotrigine 150 mg QHS - increased 10/09/2023 from prior to admission dose of 100 mg * continue prazosin 1 mg QHS - prior to admission medication * continue trazodone 50 mg QHS - prior to admission medication 11/09/2023: * start aripiprazole 5 mg daily * resume buspirone 15 mg BID - prior to admission medication * continue fluoxetine 30 mg daily - increased 10/09/2023 from prior to admission dose of 20 mg * continue lamotrigine 150 mg QHS - increased 10/09/2023 from prior to admission dose of 100 mg * continue prazosin 1 mg QHS - prior to admission medication * continue trazodone 50 mg QHS - prior to admission medication 11/08/2023: The patient was admitted to the [facility] ([facility]) on q15 min checks (behavioral with suicide precautions) for safety. The patient will participate in group, recreational, and milieu therapies and will be offered additional individual and family sessions as clinically appropriate. Risks/benefits/alternatives reviewed re: current medications, including but not limited to FDA warnings and risk of rash. She agreed to an increase in Prozac to 30 mg and Lamictal 150 mg hs. Inventory Assets Strengths: help seeking, better med compliance, working at [place] Needs: improve coping, outpatient therapy Suicide Risk Level Suicide Risk Level: High-Moderate (q15 min suicide checks) Risk Factors Assessment : Yes Do You Have Access To A Gun?: No Health Problems: Yes Mental Health Diagnoses: Yes Previous Attempt: Yes Previous Psychiatric Hospitalization: Yes Protective Factors Assessment Employed: Yes ([employer]) Stable Relationships: Yes Good Rapport with Provider: Yes Interval History Identifying Information ASA REAL is a 18-year-old F who currently lives with a friend in [place], has a history of SI/SIB and previous admissions to , and was admitted on 11/08/23 00:32 on a 201 voluntary commitment for SI with plan. Chief Complaint "A lot better". Review of Systems Sleep Information Total Hours of Sleep: 7.5 Sleep Comments: Pt admitted to unit at 0100 Meal Information Percent Meal Consumed - Breakfast: 0 Percent Meal Consumed - Lunch: 100 Percent Meal Consumed - Dinner: 90 Subjective Subjective The patient was seen and assessed and interval progress reviewed in a multidisciplinary team meeting with the treatment team. For details, see the "Impression" section. Overall I spent a total of 42 minutes for this inpatient follow-up including review of chart records, direct evaluation of the patient [id number], counseling the patient, medication education with the patient, risk assessment, discussion during interdisciplinary treatment rounds, and documentation in the electronic health record. Physical Exam Psychiatric Orientation: alert, oriented to person, oriented to place, oriented to time and cooperative Apperance: appropriately dressed and appropriately groomed Eye Contact: good eye contact and + poor eye contact Motor Behavior: no abnormal motor movements Speech: normal rate/rhythm/volume of speech Affect: + constricted affect Mood: + anxious mood and + dysphoric mood Thought Process: goal directed thought process Thought Content: reality based without delusions Suicidal Thoughts: denies suicidal thoughts, denies suicidal plan and denies suicidal intent Homicidal Thoughts: denies homicidal thoughts Hallucinations: no auditory hallucinations and no visual hallucinations Cognition: recent memory grossly intact, remote memory grossly intact, attention grossly intact and language grossly intact Estimated Intelligence: consistent with education level Insight: + limited insight Judgment: + limited judgement Vital Signs (Past 24 Hours) Last Vital Signs Temp 36.6 C 11/10/23 06:39 Pulse 102 H 11/10/23 06:40 Resp 16 11/10/23 06:39 BP 134/81 11/10/23 06:40 Pulse Ox 99 11/08/23 01:53 O2 Del Method Room Air 11/08/23 01:53 Results & Data ([facility]) Current Inpatient Medications Current Inpatient Medications: Current Inpatient Medications Acetaminophen (Acetaminophen 325 Mg Tab) 650 mg PO Q4H PRN PRN Reason: Headache or Minor Fever Stop: 12/08/23 01:34 Al Hydrox/Mg Hydrox/Simethicone (Aluminum/Magnesium Susp 30 Ml Udc) 30 ml PO Q4H PRN PRN Reason: GI Upset Stop: 12/08/23 01:34 Aripiprazole (Aripiprazole 5 Mg Tab) 5 mg PO QAM [facility] Stop: 12/09/23 12:44 Last Admin: 11/10/23 09:34 Dose: 5 mg Bismuth Subsalicylate (Bismuth Subsalicylate Liqd 236 Ml) 15 ml PO PRN PRN PRN Reason: Loose Stool Stop: 12/08/23 01:34 Buspirone HCl (Buspirone 7.5 Mg Tab) 15 mg PO BID [facility] Stop: 12/09/23 12:44 Last Admin: 11/10/23 09:35 Dose: 15 mg Fluoxetine HCl (Fluoxetine Hcl 10 Mg Cap) [facility] [place] Stop: 12/08/23 10:14 Last Admin: 11/10/23 09:33 Dose: 30 mg Hydroxyzine HCl (Hydroxyzine Hcl 25 Mg Tab) 50 mg PO HSZ PRN PRN Reason: Insomnia Stop: 12/08/23 01:34 Hydroxyzine HCl (Hydroxyzine Hcl 25 Mg Tab) 25 mg PO Q4H PRN PRN Reason: Anxiety Stop: 12/08/23 01:34 Last Admin: 11/10/23 10:57 Dose: 25 mg Lamotrigine (Lamotrigine 25 Mg Tab) 150 mg PO [facility]; Protocol Stop: 12/08/23 21:59 Last Admin: 11/09/23 21:29 Dose: 150 mg Magnesium Hydroxide (Magnesium Hydroxide Susp 30 Ml Udc) 30 ml PO DAILY PRN PRN Reason: Constipation Stop: 12/08/23 01:34 Metformin HCl ([facility] Hcl 500 Mg Tab) [facility] Stop: 12/08/23 17:14 Last Admin: 11/09/23 18:37 Dose: 500 mg Nicotine Polacrilex (Nicotine Polacrilex 2 Mg Gum) 2 piece MT PRN PRN PRN Reason: Nicotine Withdrawal Symptoms Stop: 12/08/23 01:34 Last Admin: 11/10/23 10:33 Dose: 2 piece Prazosin HCl (Prazosin Hcl 1 Mg Cap) 1 mg PO [facility] Stop: 12/08/23 21:59 Last Admin: 11/09/23 21:29 Dose: 1 mg Sodium Chloride (Sodium Chloride 0.65% Na Soln 45 Ml ([place])) 1 - 2 sprays NA PRN PRN PRN Reason: Nasal Dryness/Congestion Stop: 12/08/23 01:34 Trazodone HCl (Trazodone Hcl 100 Mg Tab) 100 mg PO HS [facility] Stop: 12/09/23 21:59 Last Admin: 11/09/23 21:28 Dose: 100 mg Mental Health & Subst Abuse Tx Psychiatrist Name of Psychiatrist: Homero Roche Psychiatrist's Date Of Appointment With Psychiatric Provider: 11/24/2023 Psychiatric Appointment Comment: [address] [facility] [id number] Therapist Name of Therapist: [facility] Date of Therapist Appointment: 11/26/23 Therapy Appointment Comment: [address] [facility], [facility] [address] [employer] Runner Name of Calender Runner: None Post Discharge Appointments Primary Care Physician Name Of Family Doctor/PCP: Akua Saldaña Primary Care Provider Appointment Comment: Please follow up with PCP as needed. Specialist Name of Specialist: Henok Mota Phone Number for Specialist: [phone] Date of Appointment with Specialist: 07/29/24 Time of Appointment with Specialist: 9:30 AM Specialty Appointment Comment: [facility] [place] [id number]
[2023-11-10 11:27] LABS: Codeine Urine NEGATIVE ng/mL (<50); Hydrocodone Urine NEGATIVE ng/mL (<50); Hydromor Urine NEGATIVE ng/mL (<50); Marijuana Quant, GCMS Urine 610 ng/mL (<5); Morphine Urine 160 ng/mL (<50); Norhydrocodone Conf Ur NEGATIVE ng/mL (<50); Noroxycodone Urine NEGATIVE ng/mL (<50); Oxycodone Urine NEGATIVE ng/mL (<50); Oxymorph Urine NEGATIVE ng/mL (<50)
[2023-11-10] MEDS: metFORMIN HCL 500 MG TAB PO SCH (17:28)
[2023-11-10] MEDS: lamoTRIgine 25 MG TAB PO SCH (20:15)
[2023-11-10] MEDS: PRAZOSIN HCL 1 MG CAP PO SCH (20:15)
[2023-11-10] MEDS: traZODone HCL 100 MG TAB PO SCH (20:16)
[2023-11-11] MEDS: busPIRone 7.5 MG TAB PO SCH (08:29)
[2023-11-11] MEDS: FLUoxetine HCL 10 MG CAP PO SCH (08:30)
[2023-11-11] MEDS: ARIPiprazole 5 MG TAB PO SCH (08:30)
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
== END 2023-11-11 11:55 | disposition home or self-care (01) | DRG 881 ==
LOC: ED 18:21 → 3S 11-08 00:32